=== PATIENT | female | born 2000 | race African-American/Black ===

== ENCOUNTER 2020-08-16 13:05 | Outpatient (REF) | payer MEDICAID, SELFPAY | END 2020-08-16 13:06 | disposition home or self-care (01) | LOC: HO.LAB 13:05 | PROVIDERS: PCP Internal Medicine; Visit Provider Internal Medicine | DX: Z20.828 Contact with and (suspected) exposure to other viral communicable diseases (principal) | CPT/HCPCS: C9803; U0003 ==

== ENCOUNTER 2021-05-15 11:26 | Emergency (ER) | payer MEDICAID, SELFPAY ==
--- NOTE | ~2021-05-15 | XR_ITS ---
EXAMINATION: XR FOOT, LEFT CLINICAL INFORMATION: Foot pain COMPARISON: None TECHNIQUE: AP, lateral, and oblique views of the left foot. There is an arrow marker pointed towards the proximal metatarsals on lateral view. FINDINGS: There is no acute or healing fracture, dislocation, or destructive process. The bony mineralization is normal. There is no joint narrowing or erosive change or chondrocalcinosis. Small spur versus superimposed tiny ossicle resides adjacent to lateral side second metatarsal head on AP view. XR/XR foot LT 2V IMPRESSION: No acute or healing fracture, dislocation, or arthropathy.
[2021-05-15 12:14] VITALS: BP 114/67; PULSE 62; RESP 18; TEMP 36.8; O2SAT 100; BMI 46.0
--- NOTE | 2021-05-15 12:24 | ED_ITS ---
HPI - General Adult General Chief complaint: Extremity Injury, Lower Stated complaint: lt foot pain Time Seen by Provider: 05/15/21 12:24 Source: patient Limitations: no limitations History of Present Illness HPI narrative: Patient presents with atraumatic left foot pain. Patient states pain has been worsening over the front of her foot over the last 2 weeks. Patient denies any past injuries or trauma to the foot. Patient states she has had intermittent foot pain over the last year at times. Patient states she is on her feet at work a lot. Patient states pain increases with weight-bearing and range of motion. Patient denies history of gouty arthritis and diabetes or any other medical complaints at this time. Symptoms mild to moderate pain 02/23. Related Data Previous Rx's Medication Instructions Recorded naproxen 500 mg tablet 500 mg PO BID PRN #30 tab 05/15/21 Allergies Allergy/AdvReac Type Severity Reaction Status Date / Time No Known Allergies Allergy Unverified 05/03/20 16:49 Review of Systems Constitutional: Constitutional: Denies chills, Denies fever(s), Denies frequent falls and Denies headache(s) ENT: Denies headache(s) Cardiovascular: Cardiovascular: Denies chest pain, Denies chest pain at rest and Denies dyspnea Respiratory: Respiratory: Denies cough and Denies dyspnea Gastrointestinal: Gastrointestinal: Denies nausea and Denies vomiting Genitourinary: Comments: Left foot pain Neurologic: Denies frequent falls and Denies headache(s) [facility] Past Medical History Attestation statement: The following information was validated with the patient. Social History Social History Advance Directives: No Patient : No Physical Exam Vital Signs: Vital Signs: Last Vital Signs Temp 98.3 F 05/15/21 12:14 Pulse 62 05/15/21 12:14 Resp 18 05/15/21 12:14 BP 114/67 05/15/21 12:14 Pulse Ox 100 05/15/21 12:14 Body Mass Index 46.0 vital signs have been reviewed as normal and appeared to be correct. Blood pressure normal. Heart rate normal. Respiration rate normal. Temperature normal. Oxygen saturation normal. Appearance: Alert. Oriented X3. No acute distress. Head: Normal external exam. Normocephalic. Atraumatic. Eyes: PERRLA. EOMI. ENT: Pharynx normal. Uvula midline. Moist mucous membranes. Neck: Soft full range of motion, no JVD CVS: Heart regular rate and rhythm no murmurs and rubs Respiratory: Breath sounds are clear to auscultation bilaterally. No accessory muscle use noted. Skin: Skin warm and dry. Normal skin color. Normal skin turgor. No rashes/lesions/lacerations noted. Extremities: Positive tenderness over the dorsum of the left foot no deformity positive pulses pulses station no erythema not hypersensitive to touch Neuro: Oriented X 3. No motor deficit. No sensory deficit. Reflexes normal. Course Course Course Narrative: Left foot pain Left foot arthritis Plantar fasciitis Chronic foot pain. X-rays negative follow-up with Podiatry will be recommended Medical Decision Making Imaging Data foot: Radiologist's impression: [address] [address] XRay Report Signed Patient: Mery Bui MR#: [id number] : 2000 Acct:[id number] Age/Sex: 20 / F ADM Date: 05/15/21 Loc: HO.ED Attending Dr: Ordering Physician: Rui Stone MD Date of Service: 05/15/21 Procedure(s): XR foot LT 2V Accession Number(s): [id number] cc: Rui Stone MD~ EXAMINATION: XR FOOT, LEFT CLINICAL INFORMATION: Foot pain? COMPARISON: None? TECHNIQUE: AP, lateral, and oblique views of the left foot. There is an arrow marker pointed towards the proximal metatarsals on lateral view. FINDINGS: There is no acute or healing fracture, dislocation, or destructive process. The bony mineralization is normal. There is no joint narrowing or erosive change or chondrocalcinosis. Small spur versus superimposed tiny ossicle resides adjacent to lateral side second metatarsal head on AP view. XR/XR foot LT 2V IMPRESSION: No acute or healing fracture, dislocation, or arthropathy. Dictated By: Paul Sweeney MD Signed By: <Electronically signed by Paul Sweeney MD in OV> 05/15/21 1251 DD/ 1231 TD/TT:? 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
== END 2021-05-15 13:17 | disposition home or self-care (01) ==
PROVIDERS: Emergency Provider Emergency Medicine Emergency Medical Services; PCP Internal Medicine
DX: M79.672 Pain in left foot (principal); Z79.899 Other long term (current) drug therapy
CPT/HCPCS: 73620; 99283

== ENCOUNTER → 2022-01-30 14:48 | Outpatient (BNVA) | payer MEDICAID, SELFPAY | PROVIDERS: PCP Internal Medicine; Visit Provider Surgery | DX: L30.9 Dermatitis, unspecified (principal) | CPT/HCPCS: 99202 ==

== ENCOUNTER 2022-03-03 11:08 | Outpatient (REF) | payer MEDICAID, SELFPAY ==
[2022-03-03 13:25] LABS: Syphilis Screen Nonreactive (Nonreactive)
[2022-03-03 15:18] LABS: CT PCR NOT DETECTED (Not Detect.); NG PCR NOT DETECTED (Not Detect.)
[2022-03-04 06:48] LABS: HBsAGNum1 0.61 S/CO (0.00-0.99); HIV AB/AG Nonreactive (Nonreactive); HIV Num 1 0.06 S/CO (0.00-0.99); Hepatitis B Surface Antigen Negative (Negative); ~HepC Num1 0.08 S/CO (0.00-0.79); ~Hepatitis C Antibody Nonreactive (Nonreactive)
[2022-03-04 09:43] LABS: BV Int Neg Control Negative (Negative); BV Int Pos Control Positive (Positive)
== END 2022-03-03 11:09 | disposition home or self-care (01) ==
LOC: HO.LAB 11:08
PROVIDERS: PCP Internal Medicine; Visit Provider Advanced Practice Midwife
DX: R30.0 Dysuria (principal); B96.20 Unspecified Escherichia coli [E. coli] as the cause of diseases classified elsewhere; N89.8 Other specified noninflammatory disorders of vagina; E66.01 Morbid (severe) obesity due to excess calories; Z11.3 Encounter for screening for infections with a predominantly sexual mode of transmission; Z11.8 Encounter for screening for other infectious and parasitic diseases; Z11.59 Encounter for screening for other viral diseases
CPT/HCPCS: 36415; 86780; 86803; 87086; 87088; 87186; 87340; 87389; 87480; 87491; 87510; 87591; 87660; 99202

== ENCOUNTER 2022-12-16 21:55 | Emergency (ER) | payer MEDICAID, SELFPAY ==
[2022-12-16 22:05] VITALS: BP 111/77; PULSE 86; RESP 16; TEMP 37.1; O2SAT 98; BMI 41.0
[2022-12-16 22:31] LABS: Basophils Absolute Auto 0.1 X10*3/uL (0.0-0.2); Basophils Percent Auto 0.3 % (0-2); Eosinophils Absolute Auto 0.1 X10*3/uL (0.0-0.4); Eosinophils Percent Auto 0.5 % (0-4); Hematocrit 42.2 % (37.0-47.0); Hemoglobin 14.6 g/dl (12.0-16.0); Imm Gran Abs Auto 0.07 X10*3/uL (0.00-0.03); Imm Gran Pct Auto 0.4 % (0.0-0.4); Lymphocytes Absolute Auto 0.5 X10*3/uL (1.2-4.9); Lymphocytes Percent Auto 2.6 % (20-40); MANUAL DIFF FLAG SCAN; Mean Corpuscular HGB Conc 34.6 g/dl (31.0-35.0); Mean Corpuscular Volume 86.7 fL (80.0-98.0); Monocytes Percent Auto 5.7 % (2-11); Neutrophils Absolute Auto 16.5 x10*3/uL (2.0-8.3); Neutrophils Percent Auto 90.5 % (45-73); Platelet Count 268 X10*3/uL (160-400); Red Blood Count 4.87 X10*6/uL (4.20-5.50); Red Cell Distribution Width 12.5 % (11.0-16.0); SCAN SMEAR FLAG 1; White Blood Count 18.3 X10*3/uL (4.8-10.8)
[2022-12-16 22:36] LABS: UPreg QC Valid YES; Urine Pregnancy NEGATIVE (NEGATIVE)
[2022-12-16 22:40] LABS: Appearance Urine Clear; Color Urine Yellow; Glucose Urine UA Negative (Negative); Leukocyte Esterase Urine Negative (Negative); Nitrite Urine Negative (Negative); PH >= 9.0 (5.0-9.0); Specific Gravity - Urine 1.015 (1.005-1.025); Urine Blood Negative (Negative); Urine Ketones Negative (Negative); Urine Protein Trace mg/dL (Neg-Trace)
[2022-12-16 22:46] LABS: Anion Gap 14 (12-20); Blood Urea Nitrogen 9 mg/dL (9-16); Calcium 9.2 mg/dL (8.4-10.2); Carbon Dioxide 22 mmol/L (22-29); Chloride 107 mmol/L (96-108); Creatinine Clr Calc Pharmacy 135.5; Estimated Glomerular Filt Rate > 60; Glucose Random 101 mg/dL (60-115); Potassium 3.8 mmol/L (3.3-5.1); Sodium 139 mmol/L (135-145)
[2022-12-16 23:07] LABS: SLIDE REVIEW VERIFIED
[2022-12-17 00:41] VITALS: BP 125/65; PULSE 95; RESP 16; TEMP 36.9; O2SAT 99
--- NOTE | 2022-12-17 01:16 | ED_ITS ---
HPI - Abdominal Pain General Chief Complaint: Abdominal Pain Stated Complaint: Vomiting/Diarrhea/Dizzy Time Seen by Provider: 12/17/22 01:16 Source: patient Mode of arrival: ambulatory Limitations: no limitations History of Present Illness HPI narrative: Patient otherwise healthy comes in for diarrhea , nausea and vomiting for last 24 hours vomited about 10 times and had diarrhea about 5 times unable to hold much liquids down no urinary complaints no fever or chills no recent travel or antibiotic use no other family member sick Related Data Previous Rx's Medication Instructions Recorded metronidazole 0.75 % (37.5 mg/5 1 appful vaginal BEDTIME 5 days 03/05/22 gram) vaginal gel #70 grams sulfamethoxazole 800 1 tab PO Q12H #6 tabs 03/05/22 mg-trimethoprim 160 mg tablet ondansetron 4 mg disintegrating 4 mg PO Q6-8H PRN nausea and 12/17/22 tablet vomiting #10 tabs Allergies Allergy/AdvReac Type Severity Reaction Status Date / Time No Known Allergies Allergy Verified 03/03/22 10:24 Review of Systems Review of Systems Yes all other systems are reviewed and are negative [facility] Family History Family History Mother Cervical cancer Social History Social History Smoked in Last 30 Days: No Use of substances other than those prescribed or required for medical reasons: No Advance Directives: No Advance Directives Information Provided: Yes Patient : No Physical Exam ED Vital Signs: Vital Signs - 24 hr 12/16/22 22:05 12/17/22 00:41 12/17/22 02:46 Temperature 98.8 F 98.5 F 98.9 F Pulse Rate 86 95 78 Respiratory Rate 16 16 16 Blood Pressure 111/77 125/65 93/37 L Pulse Oximetry 98 99 99 Oxygen Delivery Method Room Air Room Air Room Air 12/17/22 05:55 12/17/22 05:56 Temperature Pulse Rate 105 H 100 Respiratory Rate 16 16 Blood Pressure 122/70 122/70 Pulse Oximetry 97 Oxygen Delivery Method Room Air BMI result Body Mass Index 41.0 Appearance: Alert. Oriented X3. No acute distress. Eyes: No pallor or icterus ENT: Pharynx normal. Oral Mucosa moist Neck: Normal inspection. Neck supple. CVS: Normal heart rate and rhythm. Pulses normal. Respiratory: No respiratory distress. Equal air entry bilateral, no wheezing/rales/rhonchi Abdomen: Soft and nontender. Bowel sounds are present, no mass palpable, no CVA tenderness Skin: Skin warm and dry. Normal skin color. Normal skin turgor. Extremities: No lower extremity edema. No calf tenderness Neuro: Oriented X 3. No motor deficit. Medical Decision Making Medical Decision Making [facility] Narrative: Patient has acute gastroenteritis no focal tenderness in the abdomen feeling much better after IV fluids and Zofran and dicyclomine Lab Data [facility] Lab Attestation statement: I reviewed the patient's lab results. 12/16/22 22:20 12/16/22 22:20 Labs: Lab Results 12/16/22 12/16/22 12/16/22 Range/Units 22:20 22:20 22:20 WBC 18.3 H (4.8-10.8) X10*3/uL RBC 4.87 (4.20-5.50) X10*6/uL Hgb 14.6 (12.0-16.0) g/dl Hct 42.2 (37.0-47.0) % MCV 86.7 (80.0-98.0) fL MCH 30.0 (27.0-33.0) pg MCHC 34.6 (31.0-35.0) g/dl RDW 12.5 (11.0-16.0) % Plt Count 268 (160-400) X10*3/uL MPV 11.0 (9.4-12.3) fL Immature Gran % (Auto) 0.4 (0.0-0.4) % Neut % (Auto) 90.5 H (45-73) % Lymph % (Auto) 2.6 L (20-40) % [place] % (Auto) 5.7 (2-11) % Eos % (Auto) 0.5 (0-4) % Baso % (Auto) 0.3 (0-2) % Lymph # (Auto) 0.5 L (1.2-4.9) X10*3/uL [place] # (Auto) 1.0 (0.1-1.2) X10*3/uL Eos # (Auto) 0.1 (0.0-0.4) X10*3/uL Baso # (Auto) 0.1 (0.0-0.2) X10*3/uL Abs Immat Gran (auto) 0.07 H (0.00-0.03) X10*3/uL Absolute Neuts (auto) 16.5 H (2.0-8.3) x10*3/uL Absolute Nucleated RBC 0.000 (0.0-0.012) X10*3/uL Nucleated RBC % (auto) 0.0 (0.0-0.2) /100WBC Smear Tech's Comments VERIFIED Sodium 139 (135-145) mmol/L Potassium 3.8 (3.3-5.1) mmol/L Chloride 107 (96-108) mmol/L Carbon Dioxide 22 (22-29) mmol/L Anion Gap 14 (12-20) BUN 9 (9-16) mg/dL Creatinine 0.89 (0.5-1.4) mg/dL Estim Creat Clear Calc 135.5 Estimated GFR > 60 Random Glucose 101 (60-115) mg/dL Calcium 9.2 (8.4-10.2) mg/dL Urine Color Yellow Urine Appearance Clear Urine pH >= 9.0 (5.0-9.0) Ur Specific [place] 1.015 (1.005-1.025) Urine Protein Trace (Neg-Trace) mg/dL Urine Glucose (UA) Negative (Negative) mg/dL Urine Ketones Negative (Negative) mg/dL Urine Blood Negative (Negative) Urine Nitrite Negative (Negative) Ur Leukocyte Esterase Negative (Negative) Urine Test (NEGATIVE) 12/16/22 Range/Units 22:20 WBC (4.8-10.8) X10*3/uL RBC (4.20-5.50) X10*6/uL Hgb (12.0-16.0) g/dl Hct (37.0-47.0) % MCV (80.0-98.0) fL MCH (27.0-33.0) pg MCHC (31.0-35.0) g/dl RDW (11.0-16.0) % Plt Count (160-400) X10*3/uL MPV (9.4-12.3) fL Immature Gran % (Auto) (0.0-0.4) % Neut % (Auto) (45-73) % Lymph % (Auto) (20-40) % [place] % (Auto) (2-11) % Eos % (Auto) (0-4) % Baso % (Auto) (0-2) % Lymph # (Auto) (1.2-4.9) X10*3/uL [place] # (Auto) (0.1-1.2) X10*3/uL Eos # (Auto) (0.0-0.4) X10*3/uL Baso # (Auto) (0.0-0.2) X10*3/uL Abs Immat Gran (auto) (0.00-0.03) X10*3/uL Absolute Neuts (auto) (2.0-8.3) x10*3/uL Absolute Nucleated RBC (0.0-0.012) X10*3/uL Nucleated RBC % (auto) (0.0-0.2) /100WBC Smear Tech's Comments Sodium (135-145) mmol/L Potassium (3.3-5.1) mmol/L Chloride (96-108) mmol/L Carbon Dioxide (22-29) mmol/L Anion Gap (12-20) BUN (9-16) mg/dL Creatinine (0.5-1.4) mg/dL Estim Creat Clear Calc Estimated GFR Random Glucose (60-115) mg/dL Calcium (8.4-10.2) mg/dL Urine Color Urine Appearance Urine pH (5.0-9.0) Ur Specific [place] (1.005-1.025) Urine Protein (Neg-Trace) mg/dL Urine Glucose (UA) (Negative) mg/dL Urine Ketones (Negative) mg/dL Urine Blood (Negative) Urine Nitrite (Negative) Ur Leukocyte Esterase (Negative) Urine Test NEGATIVE (NEGATIVE) Medications Administered Discontinued Medications Generic Name Dose Route Start Last Admin Trade Name Freq PRN Reason Stop Dose Admin Dicyclomine HCl 20 mg 12/17/22 01:22 12/17/22 02:03 Dicyclomine Hcl 10 Mg Capsule PO 12/17/22 01:23 20 mg ONCE ONE Administration Sodium Chloride 1,000 mls @ 999 mls/hr 12/17/22 01:22 12/17/22 05:56 Ns IV 05/03/23 02:22 Infused .Q1H1M ONE Infusion Ondansetron HCl 4 mg 12/17/22 01:22 12/17/22 02:03 Ondansetron Hcl 4 Mg/2 Ml Vial IVPUSH 12/17/22 01:23 4 mg ONCE ONE Administration Discharge Plan Discharge Clinical Impression: Gastroenteritis Patient Disposition: Home, Self-Care Instructions: Gastroenteritis (ED) Additional Instructions: Drink plenty of fluid Medicine for nausea as prescribed Follow-up with PCP if not better Prescriptions: New ondansetron 4 mg tablet,disintegrating 4 mg PO Q6-8H PRN (Reason: nausea and vomiting) Qty: 10 0RF No Action sulfamethoxazole-trimethoprim 800-160 mg tablet 1 tab PO Q12H Qty: 6 0RF Rx Instructions: take q 12 hours ( twice a day ) for 3 days metronidazole 0.75 % gel 1 appful vaginal BEDTIME 5 Days Qty: 70 0RF Stand Alone Forms: Work/School Release Interventions: ED Discharge Assessment Last Done: 12/17/22 06:02 Discharge Date/Time: 12/17/22 06:03
[2022-12-17] MEDS: ondansetron HCL 4 MG/2 ML VIAL IVPUSH (02:03)
[2022-12-17] MEDS: Dicyclomine HCl 10 MG CAPSULE 20 MG PO (02:03)
[2022-12-17] MEDS: 0.9 % Sodium Chloride 1,000 ML 999 ML IV (02:03)
--- NOTE | 2022-12-17 02:06 | PC.NURSE ---
IV established, IVF infusing per MAR. Pt medicated per MAR. Continue to monitor.
[2022-12-17 02:46] VITALS: BP 93/37; PULSE 78; RESP 16; TEMP 37.2; O2SAT 99
[2022-12-17 05:55] VITALS: BP 122/70; PULSE 105; RESP 16; O2SAT 97
[2022-12-17 05:56] VITALS: BP 122/70; PULSE 100; RESP 16
== END 2022-12-17 06:03 | disposition home or self-care (01) ==
PROVIDERS: Emergency Provider Internal Medicine; PCP Internal Medicine
DX: K52.9 Noninfective gastroenteritis and colitis, unspecified (principal); Z79.899 Other long term (current) drug therapy
CPT/HCPCS: 36415; 80048; 81003; 81025; 85025; 96361; 96374; 99285; J2405

== ENCOUNTER 2023-04-12 11:53 | Emergency (ER) | payer MEDICAID, SELFPAY ==
--- NOTE | 2023-04-12 12:02 | ED_ITS ---
HPI - Headache General Chief Complaint: Headache Stated Complaint: pressure headache Time Seen by Provider: 04/12/23 13:03 Related Data Previous Rx's Medication Instructions Recorded metronidazole 0.75 % (37.5 mg/5 1 appful vaginal BEDTIME 5 days 03/05/22 gram) vaginal gel #70 grams sulfamethoxazole 800 1 tab PO Q12H #6 tabs 03/05/22 mg-trimethoprim 160 mg tablet ondansetron 4 mg disintegrating 4 mg PO Q6-8H PRN nausea and 12/17/22 tablet vomiting #10 tabs [id number] 1 cap PO Q8H PRN pain #10 caps 04/12/23 50 mg-300 mg-40 mg capsule (Fioricet) Allergies Allergy/AdvReac Type Severity Reaction Status Date / Time No Known Allergies Allergy Verified 04/12/23 12:07 PMFSH Family History Family History Mother Cervical cancer Social History Social History Advance Directives: No Advance Directives Information Provided: No Physical Exam Vital Signs: Vital Signs: Last Vital Signs Temp 96.2 F L 04/12/23 16:17 Pulse 55 04/12/23 16:50 Resp 16 04/12/23 16:50 BP 109/62 04/12/23 16:50 Pulse Ox 99 04/12/23 16:50 O2 Del Method Room Air 04/12/23 16:50 BMI result Body Mass Index 44.0 Course Course Course Narrative: This is an RME: Additional HPI, ROS, PE not included below will be deferred to primary provider. Patient is a 22 year old female who presents to the emergency department for evaluation of a headache time 5 days primarily frontal but moves and has felt to right parietal and occipital region as well. Alleviates some with ibuprofen but then returns. Denies vision changes, dizziness, neck pain, nausea, vomiting, photophobia, phonophobia. Plan: Urinalysis, hCG, placed in W are pending bed availability Medications Administered Discontinued Medications Generic Name Dose Route Start Last Admin Trade Name Freq PRN Reason Stop Dose Admin Diphenhydramine HCl 25 mg 04/12/23 14:25 04/12/23 14:37 Diphenhydramine Hcl 50 Mg/Ml Vial IVPUSH 04/12/23 14:26 25 mg ONCE ONE Administration Sodium Chloride 1,000 mls @ 999 mls/hr 04/12/23 14:30 04/12/23 16:14 Ns IV 04/12/23 15:30 Infused .Q1H1M TAYE Infusion Ketorolac Tromethamine 15 mg 04/12/23 14:25 04/12/23 14:36 Ketorolac Tromethamine 15 Mg/Ml Vial IVPUSH 04/12/23 14:26 15 mg ONCE ONE Administration Metoclopramide HCl 10 mg 04/12/23 14:25 04/12/23 14:38 Metoclopramide Hcl 10 Mg/2 Ml Vial IVPUSH 04/12/23 14:26 10 mg ONCE ONE Administration Medical Decision Making Lab Data Labs: Lab Results 04/12/23 04/12/23 Range/Units 13:15 13:15 Urine Color Yellow Urine Appearance Clear Urine pH 6.0 (5.0-9.0) Ur Specific [place] 1.015 (1.005-1.025) Urine Protein Negative (Neg-Trace) mg/dL Urine Glucose (UA) Negative (Negative) mg/dL Urine Ketones Negative (Negative) mg/dL Urine Blood Negative (Negative) Urine Nitrite Negative (Negative) Ur Leukocyte Esterase Negative (Negative) Urine Test NEGATIVE (NEGATIVE) Discharge Plan Discharge Clinical Impression: Headache Patient Disposition: Home, Self-Care Instructions: Acute Headache (DC) Additional Instructions: You have been evaluated in the emergency department today for headache. Your evaluation did not show evidence of medical conditions requiring emergent intervention at this time, and your pain improved with medication in the ED. We recommend you take 600 mg ibuprofen every 6 hours or Tylenol 650 mg every 6 hour s as needed for pain. If needed, you can alternate these medications so that you take 1 medication every 3 hours. For instance, at noon take ibuprofen, then at 3:00 p.m. take Tylenol, then at 6:00 p.m. take ibuprofen. Please follow-up with your primary care provider within 2 days. You are being prescribed Fioricet to use for when Tylenol and ibuprofen are ineffective. Please follow- up with your primary care provider this week. Return to the emergency department if you experience worsening or uncontrolled pain, vision changes, recurrent vomiting, difficulty with normal activities, abnormal behavior, difficulty walking, numbness, weakness, or any other concerning symptoms. Prescriptions: New [id number] [Fioricet] 50-300-40 mg capsule 1 cap PO Q8H PRN (Reason: pain) Qty: 10 0RF No Action sulfamethoxazole-trimethoprim 800-160 mg tablet 1 tab PO Q12H Qty: 6 0RF Rx Instructions: take q 12 hours ( twice a day ) for 3 days metronidazole 0.75 % gel 1 appful vaginal BEDTIME 5 Days Qty: 70 0RF ondansetron 4 mg tablet,disintegrating 4 mg PO Q6-8H PRN (Reason: nausea and vomiting) Qty: 10 0RF Interventions: ED Discharge Assessment Last Done: 04/12/23 17:40 Discharge Date/Time: 04/12/23 17:40
[2023-04-12 12:03] VITALS: BP 144/63; PULSE 69; RESP 20; TEMP 36.7; O2SAT 98; BMI 44.0
[2023-04-12 13:26] LABS: Appearance Urine Clear; Color Urine Yellow; Glucose Urine UA Negative (Negative); Leukocyte Esterase Urine Negative (Negative); Nitrite Urine Negative (Negative); Specific Gravity - Urine 1.015 (1.005-1.025); Urine Blood Negative (Negative); Urine Ketones Negative (Negative); Urine Protein Negative (Neg-Trace)
[2023-04-12 13:28] LABS: UPreg QC Valid YES; Urine Pregnancy NEGATIVE (NEGATIVE)
--- NOTE | 2023-04-12 14:26 | ED_ITS ---
HPI - Headache General Chief Complaint: Headache Stated Complaint: pressure headache Time Seen by Provider: 04/12/23 13:03 Source: patient Mode of arrival: ambulatory Limitations: no limitations History of Present Illness HPI Narrative: Patient is a 22-year-old female presenting to the emergency department with complaint of frontal and occipital headache which has been intermittent since Thursday but she has been unable to resolve. Also complains posterior neck tension and feels the pain radiates to bilateral ears at times. Reports using ibuprofen for her symptoms with only temporary relief. Denies any blurred vision, double vision or other visual changes. Denies nausea or vomiting. Denies dizziness or lightheadedness. Denies headache worst at onset, denies worst headache of life. Denies any episodes of syncope. States is consistent with prior headaches. Denies fevers. Denies any recent falls or other trauma. MD elicited complaint: headache Onset (ago): day(s) Onset description: gradually Location: frontal and occipital Severity: moderate Quality & Timing: aching Exacerbating factors: none Relieving factors: NSAIDs Context: occurred at rest Associated symptoms: none Treatments prior to arrival: ibuprofen Related Data Previous Rx's Medication Instructions Recorded metronidazole 0.75 % (37.5 mg/5 1 appful vaginal BEDTIME 5 days 03/05/22 gram) vaginal gel #70 grams sulfamethoxazole 800 1 tab PO Q12H #6 tabs 03/05/22 mg-trimethoprim 160 mg tablet ondansetron 4 mg disintegrating 4 mg PO Q6-8H PRN nausea and 12/17/22 tablet vomiting #10 tabs buluojbqow-qgrdlgdcpvbvu-rncwtxoj 1 cap PO Q8H PRN pain #10 caps 04/12/23 50 mg-300 mg-40 mg capsule (Fioricet) Allergies Allergy/AdvReac Type Severity Reaction Status Date / Time No Known Allergies Allergy Verified 04/12/23 12:07 Review of Systems Review of Systems: As per HPI. Yes all other systems are reviewed and are negative Constitutional: Constitutional: Reports as per HPI [facility] Family History Family History Mother Cervical cancer Social History Social History Advance Directives: No Advance Directives Information Provided: No Physical Exam Vital Signs: Vital Signs: Last Vital Signs Temp 96.2 F L 04/12/23 16:17 Pulse 55 04/12/23 16:50 Resp 16 04/12/23 16:50 BP 109/62 04/12/23 16:50 Pulse Ox 99 04/12/23 16:50 O2 Del Method Room Air 04/12/23 16:50 BMI result Body Mass Index 44.0 Vital signs have been reviewed and appear to be correct. Blood pressure mildly elevated. Heart rate normal. Respiratory rate normal. Temperature normal. Oxygen saturation normal. Const: General: cooperative, healthy appearing and no acute distress Orientation/consciousness: oriented to person, oriented to place, oriented to time and patient oriented x3 Limitations: no limitations HEENT: Head: Yes normal to inspection, Yes normocephalic and Yes atraumatic Ears: external ears normal and TM's normal bilaterally General nose exam: Normal external nose present Face and sinus: Yes face symmetric Mouth: oropharynx normal and moist mucous membranes Throat: Yes uvula midline Eyes: Pupils: Equal, round and reactive pupils present Neck: Neck: Yes normal visual inspection, Yes full ROM, Yes no meningeal signs and Yes supple Resp: Effort & Inspection: normal respiratory effort and able to speak in complete sentences Auscultation: clear to auscultation bilaterally Cardio: Rate: regular rate Rhythm: regular rhythm Heart sounds: S1 norm al heart sound present and S2 normal heart sound present GI: Palpation (GI): Soft to palpation and nontender Auscultation: normoactive bowel sounds : General: Yes no CVA tenderness Back/Spine/Pelvis: Back: no CVA tenderness Skin: General skin exam: elasticity normal and turgor normal Neuro: General: oriented to person, oriented to place, oriented to time, patient oriented x3, gait normal, moves all extremities, Normal light touch and pain sensation, no meningeal signs, no focal motor deficits, CN's II-XI intact bilaterally, normal sensation to monofilament and deep tendon reflexes 2+ bilaterally Cranial nerves: Yes Equal, round and reactive pupils present Cognition (Neuro): normal cognition Gait exam (Neuro): Normal gait present Motor exam (neuro): 5/5 motor strength present throughout, Pronator motor function not present, Normal motor muscle tone present throughout and Motor abnormalities not present Sensory Exam: Normal double simultaneous stimulatio n for sensation Extrem: General: Yes full ROM, Yes no pedal edema and Yes no calf tenderness Psych: Mental Status: mental status grossly normal Affect: normal affect Thought process: Normal thought process present Medications Administered Discontinued Medications Generic Name Dose Route Start Last Admin Trade Name Rhonda PRN Reason Stop Dose Admin Diphenhydramine HCl 25 mg 04/12/23 14:25 04/12/23 14:37 Diphenhydramine Hcl 50 Mg/Ml Vial IVPUSH 04/12/23 14:26 25 mg ONCE ONE Administration Sodium Chloride 1,000 mls @ 999 mls/hr 04/12/23 14:30 04/12/23 16:14 Ns IV 04/12/23 15:30 Infused .Q1H1M TAYE Infusion Ketorolac Tromethamine 15 mg 04/12/23 14:25 04/12/23 14:36 Ketorolac Tromethamine 15 Mg/Ml Vial IVPUSH 04/12/23 14:26 15 mg ONCE ONE Administration Metoclopramide HCl 10 mg 04/12/23 14:25 04/12/23 14:38 Metoclopramide Hcl 10 Mg/2 Ml Vial IVPUSH 04/12/23 14:26 10 mg ONCE ONE Administration Medical Decision Making Medical Decision Making MDM Narrative: Patient is a 22-year-old female presenting to the emergency department with complaint of frontal and occipital headache which has been intermittent since Thursday but she has been unable to resolve. On exam patient is awake, A+Ox3, VS WNL, afebrile, normal neurological exam without focal deficits, DTRs 2+ throughout. Given reported symptoms and physical exam findings, initial differential includes migraine, tension headache. No red flag findings con cerning for as AH/ICH, temporal arteritis, giant cell arteritis, pseudotumor cerebri, meningitis, encephalitis. Do not suspect preeclampsia as test negative. No evidence of infection on UA. Do not feel imaging is indicated at this time. Plan: medicate with IV fluids, Benadryl, Reglan, Toradol and reassess 17:33 Patient reports resolution of headache after medications and fluids in the ED. States she feels comfortable with discharge home. Instructed patient to follow-up with primary care provider. Return precautions discussed at bedside. Will prescribe Fioricet for home for when Tylenol and ibuprofen not effective. Patient and mother verbalized understanding of and agreement with plan. Differential Diagnosis Differential Diagnoses: The differential diagnosis associated with the presentation includes As per [facility]. Lab Data [facility] Lab Attestation statement: I reviewed the patient's lab results. As per [facility]. Labs: Lab Results 04/12/23 04/12/23 Range/Units 13:15 13:15 Urine Color Yellow Urine Appearance Clear Urine pH 6.0 (5.0-9.0) Ur Specific [place] 1.015 (1.005-1.025) Urine Protein Negative (Neg-Trace) mg/dL Urine Glucose (UA) Negative (Negative) mg/dL Urine Ketones Negative (Negative) mg/dL Urine Blood Negative (Negative) Urine Nitrite Negative (Negative) Ur Leukocyte Esterase Negative (Negative) Urine Test NEGATIVE (NEGATIVE) Independent Historian Clinical information obtained from an independent historian. History obtained from or confirmed by: Parent (mother) External Record Review External record reviewed: Inpatient record, Office record and Outpatient record Prescription Management I considered prescription management with: Pain Medication Discharge Plan Discharge Clinical Impression: Headache Patient Disposition: Home, Self-Care Instructions: Acute Headache (DC) Additional Instructions: You have been evaluated in the emergency department today for headache. Your evaluation did not show evidence of medical conditions requiring emergent intervention at this time, and your pain improved with medication in the ED. We recommend you take 600 mg ibuprofen every 6 hours or Tylenol 650 mg every 6 hours as needed for pain. If needed, you can alternate these medications so that you take 1 medication every 3 hours. For instance, at noon take ibuprofen, then at 3:00 p.m. take Tylenol, then at 6:00 p.m. take ibuprofen. Please follow-up with your primary care provider within 2 days. You are being prescribed Fioricet to use for when Tylenol and ibuprofen are ineffective. Please follow-up with your primary care provider this week. Return to the emergency department if you experience worsening or uncontrolled pain, vision changes, recurrent vomiting, difficulty with normal activities, abnormal behavior, difficulty walking, numbness, weakness, or any other concerning symptoms. Prescriptions: New jharqevkds-zeptcirsetwpb-lcfb [Fioricet] 50-300-40 mg capsule 1 cap PO Q8H PRN (Reason: pain) Qty: 10 0RF No Action sulfamethoxazole-trimethoprim 800-160 mg tablet 1 tab PO Q12H Qty: 6 0RF Rx Instructions: take q 12 hours ( twice a day ) for 3 days metronidazole 0.75 % gel 1 appful vaginal BEDTIME 5 Days Qty: 70 0RF ondansetron 4 mg tablet,disintegrating 4 mg PO Q6-8H PRN (Reason: nausea and vomiting) Qty: 10 0RF
[2023-04-12] MEDS: 0.9 % Sodium Chloride 1,000 ML 999 ML IV (14:34)
[2023-04-12] MEDS: Ketorolac Tromethamine 15 MG/ML VIAL IVPUSH (14:36)
[2023-04-12] MEDS: diphenhydrAMINE HCL 50 MG/ML VIAL 25 MG IVPUSH (14:37)
[2023-04-12] MEDS: Metoclopramide HCl 10 MG/2 ML VIAL IVPUSH (14:38)
[2023-04-12 16:17] VITALS: BP 90/45; PULSE 63; RESP 16; TEMP 35.7; O2SAT 96
[2023-04-12 16:50] VITALS: BP 109/62; PULSE 55; RESP 16; O2SAT 99
== END 2023-04-12 17:40 | disposition home or self-care (01) ==
PROVIDERS: Nurse Practitioner Family; Emergency Provider Emergency Medicine; PCP Internal Medicine
DX: R51.9 Headache, unspecified (principal)
CPT/HCPCS: 81003; 81025; 96361; 96374; 96375; 99284; J1200; J1885; J2765

== ENCOUNTER 2023-04-13 19:20 | Emergency (ER) | payer MEDICAID, SELFPAY ==
--- NOTE | ~2023-04-13 | CT_ITS ---
EXAMINATION: CT HEAD WITHOUT CONTRAST CLINICAL INFORMATION: Pain COMPARISON: None available. TECHNIQUE: Contiguous axial imaging was performed from the skull base to vertex without intravenous administration of contrast. This CT examination was performed using dose optimization techniques as appropriate, variously including the following: *Automated exposure control *Adjustment of mA and/or kV according to patient size (this includes techniques or standardized protocols for targeted exams where dose is matched to indication/reason for exam; i.e. extremities or head) *Use of iterative reconstruction technique DLP: 704 mGy-cm FINDINGS: There is no evidence of acute intracranial hemorrhage or territorial infarction. No abnormal mass effect or midline shift is seen. Hancock to white matter differentiation is well preserved. No extra-axial fluid collections are identified. The ventricles are normal in size. There is no abnormal attenuation within the brain parenchyma. The osseous structures and soft tissues are normal. The mastoid air cells and visualized portions of the paranasal sinuses are well aerated. CT/CT head/brain wo IV con IMPRESSION: No acute intracranial pathology.
[2023-04-13 19:31] VITALS: BP 120/83; PULSE 60; RESP 18; TEMP 36.7; O2SAT 97; BMI 44.8
--- NOTE | 2023-04-13 19:31 | ED.GENADULT ---
HPI - General Adult General Chief complaint: Headache Stated complaint: migraine Time Seen by Provider: 04/13/23 19:52 Source: patient, RN notes reviewed and old records reviewed Mode of arrival: ambulatory Limitations: no limitations History of Present Illness HPI narrative: 32-year-old female presents for evaluation of a headache Related Data Previous Rx's Medication Instructions Recorded metronidazole 0.75 % (37.5 mg/5 1 appful vaginal BEDTIME 5 days 03/05/22 gram) vaginal gel #70 grams sulfamethoxazole 800 1 tab PO Q12H #6 tabs 03/05/22 mg-trimethoprim 160 mg tablet ondansetron 4 mg disintegrating 4 mg PO Q6-8H PRN nausea and 12/17/22 tablet vomiting #10 tabs oxyhoftntx-jmitwfqpagdio-xdbfvfac 1 cap PO Q8H PRN pain #10 caps 04/12/23 50 mg-300 mg-40 mg capsule (Fioricet) gtxatcopwx-wyeucmbquffdo-rtpiipgk 1 cap PO Q8H PRN headache #14 caps 04/13/23 50 mg-300 mg-40 mg capsule (Fioricet) Allergies Allergy/AdvReac Type Severity Reaction Status Date / Time No Known Allergies Allergy Verified 04/13/23 19:35 [facility] Family History Family History Mother Cervical cancer Social History Social History Advance Directives: No Advance Directives Information Provided: No Physical Exam ED Vital Signs: Vital Signs - 24 hr 04/13/23 19:31 04/13/23 19:56 04/13/23 22:00 Temperature 98.1 F 99.0 F 98.4 F Pulse Rate 60 56 66 Respiratory Rate 18 16 16 Blood Pressure 120/83 125/67 119/64 Pulse Oximetry 97 98 98 Oxygen Delivery Method Room Air Room Air Room Air BMI result Body Mass Index 44.8 Eyes Direct Ophthalmoscopy: normal light reflex, no papilledema and fundi normal bilaterally Course Course Course Narrative: This is an RME: Additional HPI, ROS, PE not included below will be deferred to primary provider. 22 year old female presenting for a migraine that has been ongoing for two weeks. She was seen for this migraine yesterday and told to take ibuprofen which has not resolved the headache. Today she has developed dizziness and now has pain behind her left eye. Denies nausea and vomiting. Plan: [facility] Reevaluation(s) Reevaluation #1: Patient reports that her headache has greatly improved. She still complains a mild headache, CT scan reassuring, she is stable for discharge Time: 22:56 Medications Administered Discontinued Medications Generic Name Dose Route Start Last Admin Trade Name Seunq PRN Reason Stop Dose Admin Diphenhydramine HCl 25 mg 04/13/23 20:27 04/13/23 21:08 Diphenhydramine Hcl 50 Mg/Ml Vial IVPUSH 04/13/23 20:28 25 mg ONCE ONE Administration Sodium Chloride 1,000 mls @ 999 mls/hr 04/13/23 20:30 04/13/23 21:07 Ns IV 04/13/23 21:30 999 mls/hr .Q1H1M TAYE Administration Ketorolac Tromethamine 15 mg 04/13/23 20:27 04/13/23 21:07 Ketorolac Tromethamine 15 Mg/Ml Vial IVPUSH 04/13/23 20:28 15 mg ONCE ONE Administration Metoclopramide HCl 10 mg 04/13/23 20:27 04/13/23 21:07 Metoclopramide Hcl 10 Mg/2 Ml Vial IVPUSH 04/13/23 20:28 10 mg ONCE ONE Administration Medical Decision Making Lab Data 04/13/23 20:42 04/13/23 20:42 Labs: Lab Results 04/13/23 04/13/23 04/13/23 Range/Units 20:42 20:42 20:42 WBC 9.8 (4.8-10.8) X10*3/uL RBC 4.39 (4.20-5.50) X10*6/uL Hgb 12.8 (12.0-16.0) g/dl Hct 37.6 (37.0-47.0) % MCV 85.6 (80.0-98.0) fL MCH 29.2 (27.0-33.0) pg MCHC 34.0 (31.0-35.0) g/dl RDW 12.6 (11.0-16.0) % Plt Count 178 D (160-400) X10*3/uL MPV 11.1 (9.4-12.3) fL Immature Gran % (Auto) 0.5 H (0.0-0.4) % Neut % (Auto) 59.0 (45-73) % Lymph % (Auto) 27.5 (20-40) % [place] % (Auto) 9.6 (2-11) % Eos % (Auto) 2.9 (0-4) % Baso % (Auto) 0.5 (0-2) % Lymph # (Auto) 2.7 (1.2-4.9) X10*3/uL [place] # (Auto) 0.9 (0.1-1.2) X10*3/uL Eos # (Auto) 0.3 (0.0-0.4) X10*3/uL Baso # (Auto) 0.1 (0.0-0.2) X10*3/uL Abs Immat Gran (auto) 0.05 H (0.00-0.03) X10*3/uL Absolute Neuts (auto) 5.8 (2.0-8.3) x10*3/uL Absolute Nucleated RBC 0.000 (0.0-0.012) X10*3/uL Nucleated RBC % (auto) 0.0 (0.0-0.2) /100WBC Smear Tech's Comments VERIFIED ESR 6 (0-20) MM/HR Sodium 138 (135-145) mmol/L Potassium 4.5 (3.3-5.1) mmol/L Chloride 104 (96-108) mmol/L Carbon Dioxide 28 (22-29) mmol/L Anion Gap 11 L (12-20) BUN 10 (9-16) mg/dL Creatinine 0.86 (0.5-1.4) mg/dL Estim Creat Clear Calc 147.5 Estimated GFR > 60 Random Glucose 85 (60-115) mg/dL Calcium 9.2 (8.4-10.2) mg/dL Total Bilirubin 0.2 (0.0-1.0) mg/dL AST 26 (5-31) U/L ALT 16 (0-31) U/L Alkaline Phosphatase 57 (39-117) U/L C-Reactive Protein 0.15 (< or = 0.50) mg/dL Total Protein 7.7 (6.5-8.0) g/dL Albumin 3.9 (3.5-5.0) g/dL Beta HCG, Quant < 2 mIU/mL Discharge Plan Discharge Clinical Impression: Acute headache Patient Disposition: Home, Self-Care Instructions: Acute Headache (ED) Additional Instructions: Your CT scan did not show any concerning findings. Funduscopic exam did not show any obvious concerning abnormalities You should still follow-up with your primary doctor and delivery associate In the meantime you may use Fioricet as needed for pain Prescriptions: New nxbjboxllj-wspltpzssskeo-exre [Fioricet] 50-300-40 mg capsule 1 cap PO Q8H PRN (Reason: headache) Qty: 14 0RF No Action sulfamethoxazole-trimethoprim 800-160 mg tablet 1 tab PO Q12H Qty: 6 0RF Rx Instructions: take q 12 hours ( twice a day ) for 3 days metronidazole 0.75 % gel 1 appful vaginal BEDTIME 5 Days Qty: 70 0RF pybejnzkfk-ldrjwrkaekczp-pvyo [Fioricet] 50-300-40 mg capsule 1 cap PO Q8H PRN (Reason: pain) Qty: 10 0RF ondansetron 4 mg tablet,disintegrating 4 mg PO Q6-8H PRN (Reason: nausea and vomiting) Qty: 10 0RF
[2023-04-13 19:56] VITALS: BP 125/67; PULSE 56; RESP 16; TEMP 37.2; O2SAT 98
--- NOTE | 2023-04-13 20:00 | MHC.EDTECH ---
this pct just assumed care of pt ,vitals sign taken ,pt waiting to see provider .
--- NOTE | 2023-04-13 20:31 | ED.GENADULT ---
HPI - General Adult General Chief complaint: Headache Stated complaint: migraine Time Seen by Provider: 04/13/23 19:52 Source: patient, family (mother) and RN notes reviewed Mode of arrival: ambulatory Limitations: no limitations History of Present Illness HPI narrative: 22-year-old female presents for evaluation of headache. The patient reports that she has had a headache mostly behind her left eye but spreading up over the back of her head for 1 week. She was seen here yesterday and was treated with IV fluids, Reglan, Benadryl, Toradol and was ultimately discharged home. Patient reports that her symptoms never resolved and are now worse today Denies any blurry vision but states that she has pain mostly behind her left eye Denies any trauma to the head or neck. She reports that she used to get headaches many years ago but does not routinely get headaches She called her primary doctor and was told that they would call her back tomorrow She an episode of dizziness earlier today prompting her to be brought back to the ER by her mother Related Data Previous Rx's Medication Instructions Recorded metronidazole 0.75 % (37.5 mg/5 1 appful vaginal BEDTIME 5 days 03/05/22 gram) vaginal gel #70 grams sulfamethoxazole 800 1 tab PO Q12H #6 tabs 03/05/22 mg-trimethoprim 160 mg tablet ondansetron 4 mg disintegrating 4 mg PO Q6-8H PRN nausea and 12/17/22 tablet vomiting #10 tabs lbtunqalkb-mdwuoglyleskj-kdfphqef 1 cap PO Q8H PRN pain #10 caps 04/12/23 50 mg-300 mg-40 mg capsule (Fioricet) bsaejiqvvc-tppszqzzammjd-nbdikptg 1 cap PO Q8H PRN headache #14 caps 04/13/23 50 mg-300 mg-40 mg capsule (Fioricet) Allergies Allergy/AdvReac Type Severity Reaction Status Date / Time No Known Allergies Allergy Verified 04/13/23 19:35 Review of Systems Constitutional: Constitutional: Reports as per HPI, Denies chills, Denies fatigue, Denies fever(s) and Reports headache(s) Eyes: Eyes: Denies blurry vision, Denies exophthalmos, Denies change in vision and Reports eye pain ENT: Reports headache(s) Cardiovascular: Cardiovascular: Denies chest pain and Denies dyspnea Respiratory: Respiratory: Denies cough and Denies dyspnea Gastrointestinal: Gastrointestinal: Denies abdominal pain, Denies constipation and Denies vomiting Genitourinary: Genitourinary: Denies dysuria Neurologic: Reports headache(s) and Denies focal weakness Endocrine: Endocrine: Denies fatigue [facility] Family History Family History Mother Cervical cancer Social History Social History Advance Directives: No Advance Directives Information Provided: No Physical Exam ED Vital Signs: Vital Signs - 24 hr 04/13/23 19:31 04/13/23 19:56 04/13/23 22:00 Temperature 98.1 F 99.0 F 98.4 F Pulse Rate 60 56 66 Respiratory Rate 18 16 16 Blood Pressure 120/83 125/67 119/64 Pulse Oximetry 97 98 98 Oxygen Delivery Method Room Air Room Air Room Air BMI result Body Mass Index 44.8 Const General: healthy appearing, comfortable, no acute distress, alert and awake Nutritional Appearance: well nourished Orientation/consciousness: patient oriented x3 HENMT Head: Yes normocephalic and Yes atraumatic Eyes Eyelids: Yes eyelids normal Conjunctivae: conjunctivae normal Sclerae: sclerae normal Corneas: corneas normal Pupils: Equal, round and reactive pupils present EOM: EOMs intact bilaterally Direct Ophthalmoscopy: normal light reflex, no photophobia and no papilledema Neck Neck: Yes full ROM Resp Effort & Inspection: normal respiratory effort, able to speak in complete sentences and not labored Skin General skin exam: no rashes or lesions noted and elasticity normal Neuro General: patient oriented x3 Cranial nerves: Yes CN's II-XII intact bilaterally, Yes Equal, round and reactive pupils present and Yes Bilaterally intact EOM present Cognition (Neuro): normal cognition Extrem Other: Moving all extremities well without any obvious deformities Course Reevaluation(s) Reevaluation #1: Patient reports feeling much better she reports her headache has greatly improved but still complains a mild headache. CT scan discussed with her which is unremarkable Time: 23:04 Medications Administered Discontinued Medications Generic Name Dose Route Start Last Admin Trade Name Freq PRN Reason Stop Dose Admin Diphenhydramine HCl 25 mg 04/13/23 20:27 04/13/23 21:08 Diphenhydramine Hcl 50 Mg/Ml Vial IVPUSH 04/13/23 20:28 25 mg ONCE ONE Administration Sodium Chloride 1,000 mls @ 999 mls/hr 04/13/23 20:30 04/13/23 21:07 Ns IV 04/13/23 21:30 999 mls/hr .Q1H1M TAYE Administration Ketorolac Tromethamine 15 mg 04/13/23 20:27 04/13/23 21:07 Ketorolac Tromethamine 15 Mg/Ml Vial IVPUSH 04/13/23 20:28 15 mg ONCE ONE Administration Metoclopramide HCl 10 mg 04/13/23 20:27 04/13/23 21:07 Metoclopramide Hcl 10 Mg/2 Ml Vial IVPUSH 04/13/23 20:28 10 mg ONCE ONE Administration Medical Decision Making Medical Decision Making [facility] Narrative: 22-year-old female presents for evaluation of headache and left eye pain. She was seen here yesterday had a reassuring exam and was ultimately discharged. She reports that today she had an episode of dizziness which is new compared to yesterday prompting her to be re-evaluated. She did not have any imaging at this time. Will get a CT scan the brain to rule out intracranial hemorrhage versus mass. Plan to treat with while RegJuan valenzuelaadryl. Patient has no fever and has good range of motion in neck, less likely to be infectious process. Funduscopic exam without any obvious abnormalities to suggest papilledema Differential Diagnosis Differential Diagnoses: The differential diagnosis associated with the presentation includes Migraine headache Tension headache Cluster headache Intracranial hemorrhage Intracranial mass Papilledema Glaucoma less likely Lab Data [facility] Lab Attestation statement: I reviewed the patient's lab results. No leukocytosis, no anemia, no left shift. No significant electrolyte abnormalities 04/13/23 20:42 04/13/23 20:42 Labs: Lab Results 04/13/23 04/13/23 04/13/23 Range/Units 20:42 20:42 20:42 WBC 9.8 (4.8-10.8) X10*3/uL RBC 4.39 (4.20-5.50) X10*6/uL Hgb 12.8 (12.0-16.0) g/dl Hct 37.6 (37.0-47.0) % MCV 85.6 (80.0-98.0) fL MCH 29.2 (27.0-33.0) pg MCHC 34.0 (31.0-35.0) g/dl RDW 12.6 (11.0-16.0) % Plt Count 178 D (160-400) X10*3/uL MPV 11.1 (9.4-12.3) fL Immature Gran % (Auto) 0.5 H (0.0-0.4) % Neut % (Auto) 59.0 (45-73) % Lymph % (Auto) 27.5 (20-40) % [place] % (Auto) 9.6 (2-11) % Eos % (Auto) 2.9 (0-4) % Baso % (Auto) 0.5 (0-2) % Lymph # (Auto) 2.7 (1.2-4.9) X10*3/uL [place] # (Auto) 0.9 (0.1-1.2) X10*3/uL Eos # (Auto) 0.3 (0.0-0.4) X10*3/uL Baso # (Auto) 0.1 (0.0-0.2) X10*3/uL Abs Immat Gran (auto) 0.05 H (0.00-0.03) X10*3/uL Absolute Neuts (auto) 5.8 (2.0-8.3) x10*3/uL Absolute Nucleated RBC 0.000 (0.0-0.012) X10*3/uL Nucleated RBC % (auto) 0.0 (0.0-0.2) /100WBC Smear Tech's Comments VERIFIED ESR 6 (0-20) MM/HR Sodium 138 (135-145) mmol/L Potassium 4.5 (3.3-5.1) mmol/L Chloride 104 (96-108) mmol/L Carbon Dioxide 28 (22-29) mmol/L Anion Gap 11 L (12-20) BUN 10 (9-16) mg/dL Creatinine 0.86 (0.5-1.4) mg/dL Estim Creat Clear Calc 147.5 Estimated GFR > 60 Random Glucose 85 (60-115) mg/dL Calcium 9.2 (8.4-10.2) mg/dL Total Bilirubin 0.2 (0.0-1.0) mg/dL AST 26 (5-31) U/L ALT 16 (0-31) U/L Alkaline Phosphatase 57 (39-117) U/L C-Reactive Protein 0.15 (< or = 0.50) mg/dL Total Protein 7.7 (6.5-8.0) g/dL Albumin 3.9 (3.5-5.0) g/dL Beta HCG, Quant < 2 mIU/mL Independent Interpretation I performed an independent interpretation of an: CT Scan (No obvious abnormalities) Radiology Impression Discussion of test interpretation with radiology: I have reviewed the radiologist's reading. (No acute intracranial abnormality) Discharge Plan Discharge Clinical Impression: Acute headache Patient Disposition: Home, Self-Care Instructions: Acute Headache (ED) Additional Instructions: Your CT scan did not show any concerning findings. Funduscopic exam did not show any obvious concerning abnormalities You should still follow-up with your primary doctor and senior vice president & general counsel In the meantime you may use Fioricet as needed for pain Prescriptions: New sugvdrvxgx-myjnhfdwrbhet-rajt [Fioricet] 50-300-40 mg capsule 1 cap PO Q8H PRN (Reason: headache) Qty: 14 0RF No Action sulfamethoxazole-trimethoprim 800-160 mg tablet 1 tab PO Q12H Qty: 6 0RF Rx Instructions: take q 12 hours ( twice a day ) for 3 days metronidazole 0.75 % gel 1 appful vaginal BEDTIME 5 Days Qty: 70 0RF bysnosqiiy-grktlirsflkhy-fplx [Fioricet] 50-300-40 mg capsule 1 cap PO Q8H PRN (Reason: pain) Qty: 10 0RF ondansetron 4 mg tablet,disintegrating 4 mg PO Q6-8H PRN (Reason: nausea and vomiting) Qty: 10 0RF
--- NOTE | 2023-04-13 20:50 | MHC.EDTECH ---
PATIENT BLOOD DRAWN AND SENT TO LAB .
[2023-04-13 20:54] LABS: Basophils Absolute Auto 0.1 X10*3/uL (0.0-0.2); Basophils Percent Auto 0.5 % (0-2); Eosinophils Absolute Auto 0.3 X10*3/uL (0.0-0.4); Eosinophils Percent Auto 2.9 % (0-4); Hematocrit 37.6 % (37.0-47.0); Hemoglobin 12.8 g/dl (12.0-16.0); Imm Gran Abs Auto 0.05 X10*3/uL (0.00-0.03); Imm Gran Pct Auto 0.5 % (0.0-0.4); Lymphocytes Absolute Auto 2.7 X10*3/uL (1.2-4.9); Lymphocytes Percent Auto 27.5 % (20-40); MANUAL DIFF FLAG SCAN; Mean Corpuscular Hemoglobin 29.2 pg (27.0-33.0); Mean Corpuscular Volume 85.6 fL (80.0-98.0); Mean Platelet Volume 11.1 fL (9.4-12.3); Monocytes Absolute Auto 0.9 X10*3/uL (0.1-1.2); Monocytes Percent Auto 9.6 % (2-11); Neutrophils Absolute Auto 5.8 x10*3/uL (2.0-8.3); PLT CLUMP 1; Red Blood Count 4.39 X10*6/uL (4.20-5.50); Red Cell Distribution Width 12.6 % (11.0-16.0); SCAN SMEAR FLAG 1
[2023-04-13 21:03] LABS: Alanine Aminotransferase 16 U/L (0-31); Albumin Level 3.9 g/dL (3.5-5.0); Alkaline Phosphatase 57 U/L (39-117); Anion Gap 11 (12-20); Aspartate Amino Transferase 26 U/L (5-31); Bilirubin Total 0.2 mg/dL (0.0-1.0); Blood Urea Nitrogen 10 mg/dL (9-16); C Reactive Protein 0.15 mg/dL (< or = 0.50); Calcium 9.2 mg/dL (8.4-10.2); Carbon Dioxide 28 mmol/L (22-29); Chloride 104 mmol/L (96-108); Creatinine Clr Calc Pharmacy 147.5; Estimated Glomerular Filt Rate > 60; Glucose Random 85 mg/dL (60-115); Potassium 4.5 mmol/L (3.3-5.1); Sodium 138 mmol/L (135-145); Total Protein 7.7 g/dL (6.5-8.0)
[2023-04-13] MEDS: 0.9 % Sodium Chloride 1,000 ML 999 ML IV (21:07)
[2023-04-13] MEDS: Ketorolac Tromethamine 15 MG/ML VIAL IVPUSH (21:07)
[2023-04-13] MEDS: Metoclopramide HCl 10 MG/2 ML VIAL IVPUSH (21:07)
[2023-04-13] MEDS: diphenhydrAMINE HCL 50 MG/ML VIAL 25 MG IVPUSH (21:08)
[2023-04-13 21:34] LABS: Erythrocyte Sedimentation Rate 6 MM/HR (0-20)
[2023-04-13 21:49] LABS: Platelet Count 178 X10*3/uL (160-400); White Blood Count 9.8 X10*3/uL (4.8-10.8)
[2023-04-13 21:50] LABS: HCG Quantitative < 2 mIU/mL; SLIDE REVIEW VERIFIED
[2023-04-13 22:00] VITALS: BP 119/64; PULSE 66; RESP 16; TEMP 36.9; O2SAT 98
== END 2023-04-13 23:11 | disposition home or self-care (01) ==
PROVIDERS: Physician Assistant; Emergency Provider Emergency Medicine; PCP Internal Medicine
DX: R51.9 Headache, unspecified (principal); R42 Dizziness and giddiness; Z79.899 Other long term (current) drug therapy
CPT/HCPCS: 36415; 70450; 80053; 84702; 85025; 85652; 86140; 96374; 96375; 99284; J1200; J1885; J2765

== ENCOUNTER 2023-05-13 09:45 | Outpatient (AMB) | payer MEDICAID, SELFPAY ==
[2023-05-13 09:46] VITALS: BP 124/88; BMI 45.5
--- NOTE | 2023-05-13 09:46 | MHC.OFFVIS ---
Intake Vital Signs 05/13/23 09:46 Height 5 ft 8 in Weight 299 lb BMI 45.5 BP 124/88 Intake Visit Reasons: ? 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 Prone to BV in past. Denies pelvic pain, urinary symptoms and vaginal odor. Reports regular monthly menses. Reports a doctor's office contacted her about vaginitis and to take Rx. [facility] Medical History (Updated 05/13/23 @ 11:07 by Lynette Godoy) BMI 45.0-49.9, adult Family History Mother Cervical cancer Female Reproductive History Menstrual Age of Menarche: 8 Date of last menstrual period: 05/10/23 Physical Exam Vital Signs: Last Vital Signs BP 124/88 05/13/23 09:46 BMI result Body Mass Index 45.5 Const General: cooperative, healthy appearing, comfortable, no acute distress, well developed, alert and awake GI Inspection: Yes obesity Other: General: Yes bladder normal to palpation External Female Exam: normal external appearance and normal appearance of the urethra Speculum Exam - Vagina: normal appearance of the vagina, normal palpation and normal vaginal discharge Speculum Exam - Cervix: normal appearance of the cervix and normal palpation Bimanual exam- vagina & uterus: normal bimanual exam, normal palpation, bladder normal to palpation and normal palpation Bimanual Exam- Adnexa, other: normal adnexae and no masses Assessment & Plan Assessment & Plan (1) Vaginal discharge: Code(s): N89.8 - Other specified noninflammatory disorders of vagina Plan: Discussed: BV testing and GC/CT panel done today. Await results and treat accordingly. Encouraged to use condoms for STD prevention if become sexually active. All of her questions and concerns were addressed to the best of my ability and shared decision making. She is agreeable to plan of care. RTO for AG. (2) BMI 45.0-49.9, adult: Code(s): Z68.42 - Body mass index [BMI] 45.0-49.9, adult Orders: Orders Bacterial Vaginosis Panel Today N89.8 - Other specified noninflammatory disorders of vagina CT NG by PCR Today N89.8 - Other specified noninflammatory disorders of vagina Coding Level of Care Code Est Pt Level 3 (49358) Diagnoses Vaginal discharge N89.8 BMI 45.0-49.9, adult Z68.42
== END 2023-05-13 10:26 | disposition home or self-care (01) ==
PROVIDERS: PCP Internal Medicine; Visit Provider Advanced Practice Midwife
DX: N89.8 Other specified noninflammatory disorders of vagina (principal); Z68.42 Body mass index [BMI] 45.0-49.9, adult
CPT/HCPCS: 99213

== ENCOUNTER 2023-05-13 09:45 | Outpatient (REF) | payer MEDICAID, SELFPAY | END 2023-05-13 09:46 | disposition home or self-care (01) | LOC: HO.LAB 09:45 | PROVIDERS: PCP Internal Medicine; Visit Provider Advanced Practice Midwife | DX: N89.8 Other specified noninflammatory disorders of vagina (principal) | CPT/HCPCS: 99212 ==

== ENCOUNTER 2023-05-13 10:23 | Outpatient (REF) | payer MEDICAID, SELFPAY ==
[2023-05-14 05:41] LABS: CT PCR NOT DETECTED (Not Detect.); NG PCR NOT DETECTED (Not Detect.)
[2023-05-14 13:01] LABS: BV Int Neg Control Negative (Negative); BV Int Pos Control Positive (Positive)
== END 2023-05-13 10:24 | disposition home or self-care (01) ==
LOC: HO.LNP 10:23
PROVIDERS: Visit Provider Advanced Practice Midwife
DX: N89.8 Other specified noninflammatory disorders of vagina (principal)
CPT/HCPCS: 0353U; 87480; 87510; 87660

== ENCOUNTER 2023-06-12 11:32 | Outpatient (REF) | payer MEDICAID, SELFPAY ==
--- NOTE | ~2023-06-12 | XR_ITS ---
EXAMINATION: XR CHEST CLINICAL INFORMATION: Cough for one month COMPARISON: None available. TECHNIQUE: 2 views of the chest were obtained. FINDINGS: Prominent cardiac silhouette. Unremarkable mediastinum. No vascular congestion, consolidations or effusions. Bony structures are intact. XR/XR chest 2V IMPRESSION: Prominent cardiac silhouette. No acute pulmonary disease.
== END 2023-06-12 11:33 | disposition home or self-care (01) ==
LOC: HO.HHCX 11:32
PROVIDERS: Visit Provider Internal Medicine
DX: R05.2 Subacute cough (principal)
CPT/HCPCS: 71046

== ENCOUNTER 2023-06-21 11:40 | Emergency (ER) | payer MEDICAID, SELFPAY ==
--- NOTE | ~2023-06-21 | XR_ITS ---
EXAMINATION: CHEST 2 VIEWS CLINICAL INFORMATION: Productive cough. COMPARISON: 06/12/2023. TECHNIQUE: PA and lateral views of the chest obtained. FINDINGS: The lungs are hypoexpanded. No focal infiltrate, effusion, edema, or pneumothorax. Cardiac and mediastinal silhouettes are within normal limits for technique. No acute bony abnormality seen XR/XR chest 2V IMPRESSION: Hypoexpanded but no evidence of acute disease
[2023-06-21 11:42] VITALS: BP 135/79; PULSE 89; RESP 18; TEMP 36.6; O2SAT 97; BMI 44.1
--- NOTE | 2023-06-21 11:42 | ED.URI ---
HPI - URI/Sore Throat General Chief Complaint: Upper Respiratory Symptoms Stated Complaint: congestion/ chest tightness Time Seen by Provider: 06/21/23 12:15 Source: patient, RN notes reviewed and old records reviewed Mode of arrival: ambulatory Limitations: no limitations History of Present Illness HPI Narrative: 22-year-old female with past medical history of morbid obesity, hypertension is here today for complaining of cough. Patient reports that about a month ago she started with cold symptoms, sinus pain and couple weeks later she and up with cough. Patient continues to be coughing. Yellow greenish sputum. Denies any fever or chills. Denies any malaise. Denies any shortness of breath. No nausea or vomiting. Denies any cardiac or GI symptoms. MD elicited complaint: cough Onset (ago): week(s) Related Data Previous Rx's Medication Instructions Recorded ondansetron 4 mg disintegrating 4 mg PO Q6-8H PRN nausea and 12/17/22 tablet vomiting #10 tabs czsapwtclk-mxtagdenqvkxk-euvgivfc 1 cap PO Q8H PRN pain #10 caps 04/12/23 50 mg-300 mg-40 mg capsule (Fioricet) benzonatate 100 mg capsule 100 mg PO BID PRN cough #20 caps 06/21/23 Allergies Allergy/AdvReac Type Severity Reaction Status Date / Time No Known Allergies Allergy Verified 06/21/23 11:42 Review of Systems Review of Systems: Constitutional : No Weight loss, No Fever, No Chills, No Night Sweats, No Fatigue, No Malaise ENT/Mouth : No Hearing loss, No Ear Pain, No Nasal Congestion, No Sinus Pain, No Hoarseness, No sore throat, No Rhinorrhea, No Swallowing Difficulty Eyes: No Eye Pain, No Swelling, No Redness, No Foreign Body, No Discharge, No Vision Changes Cardiovascular : No Chest Pain, No SOB, No Dyspnea on Exertion, No Orthopnea, No Edema, No Palpitations Respiratory : Cough, yellow sputum, No Wheezing, No Smoke Exposure, No Dyspnea Gastrointestinal : No Nausea, No Vomiting, No Diarrhea, No Constipation, No abdominal Pain, No Hematochezia, No Melena Musculoskeletal : No joint pain, No Myalgias, No Joint Swelling Skin : No Skin Lesions, No rash Yes all other systems are reviewed and are negative [facility] Past Medical History Medical History (Updated 06/21/23 @ 13:05 by Jolynn Lincoln, [facility]) BMI 45.0-49.9, adult Family History Family History Mother Cervical cancer Social History Social History Advance Directives: No Advance Directives Information Provided: No Physical Exam Vital Signs: Vital Signs: Last Vital Signs Temp 97.9 F 06/21/23 11:42 Pulse 89 06/21/23 11:42 Resp 18 06/21/23 11:42 BP 135/79 06/21/23 11:42 Pulse Ox 97 06/21/23 11:42 O2 Del Method Room Air 06/21/23 11:42 BMI result Body Mass Index 44.1 Const: General: healthy appearing, no acute distress and well developed Nutritional Appearance: well nourished Orientation/consciousness: patient oriented x3 HEENT: Head: Yes normal to inspection, Yes normocephalic and Yes atraumatic Face and sinus: Yes normal facial exam Mouth: Normal oral and palatal mucosa present Throat: Yes posterior oropharynx normal, Yes tonsils normal and Yes uvula midline Eyes: General: appearance normal, both eyes and all related structures Neck: Neck: Yes normal visual inspection, Yes full ROM and Yes trachea midline Thyroid: Thyroid normal Chest: Chest palpation & inspection: normal inspection of the chest Resp: Effort & Inspection: normal respiratory effort, able to speak in complete sentences, no tracheal deviation and symmetric chest movement Auscultation: clear to auscultation bilaterally Cardio: Heart sounds: S1 normal heart sound present and S2 normal heart sound present GI: Inspection: Yes normal to inspection Auscultation: normal bowel sounds Skin: General skin exam: elasticity normal, turgor normal and dry skin Neuro: General: patient oriented x3 Psych: Appearance: grossly normal Mental Status: mental status grossly normal Course Course Course Narrative: RME: 22yo F w/no sig PMHx c/o productive cough & chest tightness w/cough x1 mos. Went to PCP last week and had CXR that was unremarkable. denies SOB, fever VSS Viral testing and CXR ordered Full HPI, ROS and PE to be performed by primary ED provider. 22-year-old female with past medical history of morbid obesity, hypertension is here today for complaining of cough. Patient reports that about a month ago she started with cold symptoms, sinus pain and couple weeks later she started up with cough. Patient continues to be coughing. Yellow greenish sputum. Denies any fever or chills. Denies any malaise. Denies any shortness of breath. No nausea or vomiting. Denies any cardiac or GI symptoms. Chest x-ray ordered an triage and negative. Awaiting serology on COVID and flu. Reevaluation(s) Reevaluation #1: serology negative for COVID and flu. Will send patient home with benzonatate. Patient will follow-up with her PCP. Medical Decision Making Lab Data Labs: Lab Results 06/21/23 Range/Units 12:15 COVID-19 (ILYA) Negative (Negative) COVID-19 Clin Com See Note Influenza Type A (JOEY) Negative (Negative) Influenza Type B (JOEY) Negative (Negative) Influenza A & B Note See Note Discharge Plan Discharge Clinical Impression: Cough, Viral infection Patient Disposition: Home, Self-Care Instructions: Cold Symptoms (ED) Additional Instructions: you were seen here today for cough. Your chest x-ray is normal. You do not have flu or COVID. Please make sure day you drink plenty fluids. If you will have fever or chills take Tylenol or ibuprofen. You will be given script for cough medicine. You may return to emergency department if your symptoms will get worse or if you experience any additional concerning symptoms. Prescriptions: New benzonatate 100 mg capsule 100 mg PO BID PRN (Reason: cough) Qty: 20 0RF No Action noukicfrcs-thwhhcugtvbiz-gulx [Fioricet] 50-300-40 mg capsule 1 cap PO Q8H PRN (Reason: pain) Qty: 10 0RF ondansetron 4 mg tablet,disintegrating 4 mg PO Q6-8H PRN (Reason: nausea and vomiting) Qty: 10 0RF Referrals: Madison Ray MD [Primary Care Provider] - Stand Alone Forms: Work/School Release Interventions: ED Discharge Assessment Last Done: 06/21/23 13:08 Discharge Date/Time: 06/21/23 13:08
[2023-06-21 12:37] LABS: IDNOW Serial# 9DB6401D; Influenza A Negative (Negative); Influenza B2 Negative (Negative)
[2023-06-21 12:38] LABS: COVID-19 Test Negative (Negative); IDNOW Serial# 55D5AD1C
== END 2023-06-21 13:08 | disposition home or self-care (01) ==
PROVIDERS: Physician Assistant; Emergency Provider Emergency Medicine; PCP Internal Medicine
DX: B34.9 Viral infection, unspecified (principal); R05.9 Cough, unspecified; I10 Essential (primary) hypertension; R07.89 Other chest pain; Z11.52 Encounter for screening for COVID-19
CPT/HCPCS: 71046; 87502; 87635; 99282; 99284

== ENCOUNTER 2023-06-27 13:42 | Emergency (ER) | payer MEDICAID, SELFPAY ==
--- NOTE | 2023-06-27 13:45 | ED.URI ---
HPI - URI/Sore Throat General Chief Complaint: Upper Respiratory Symptoms Stated Complaint: cough Time Seen by Provider: 06/27/23 14:05 Source: patient Mode of arrival: ambulatory Limitations: no limitations History of Present Illness HPI Narrative: patient is a 22-year-old female who presents to the emergency department for evaluation of a productive cough for the past 5 weeks. She states she has been having an intermittent sore throat associated with this. She was evaluated by her primary care doctor as well as in the emergency department 1 week ago. She has had 2 chest x-rays which have been overall unremarkable. She denies fevers, chills, ear pain, dizziness, neck pain, neck stiffness, chest pain, shortness of breath, difficulty breathing, nausea vomiting, abdominal pain. Denies known sick contacts. Related Data Previous Rx's Medication Instructions Recorded ondansetron 4 mg disintegrating 4 mg PO Q6-8H PRN nausea and 12/17/22 tablet vomiting #10 tabs dilftnipmj-laxfdngonmhri-kqbenpee 1 cap PO Q8H PRN pain #10 caps 04/12/23 50 mg-300 mg-40 mg capsule (Fioricet) benzonatate 100 mg capsule 100 mg PO BID PRN cough #20 caps 06/21/23 azithromycin 250 mg tablet See Rx Instructions PO .COMPLEX #6 06/27/23 tabs Allergies Allergy/AdvReac Type Severity Reaction Status Date / Time No Known Allergies Allergy Verified 06/21/23 11:42 Review of Systems Review of Systems: Yes all other systems are reviewed and are negative PMFSH Past Medical History Attestation statement: The following information was validated with the patient. Source: old records reviewed Medical History BMI 45.0-49.9, adult Family History Family History Mother Cervical cancer Social History Social History Advance Directives: No Advance Directives Information Provided: No Physical Exam Vital Signs: Vital Signs: Last Vital Signs Temp 97.8 F 06/27/23 13:46 Pulse 70 06/27/23 13:46 Resp 18 06/27/23 13:46 BP 127/83 06/27/23 13:46 Pulse Ox 97 06/27/23 13:46 O2 Del Method Room Air 06/27/23 13:46 BMI result Body Mass Index 43.8 Appearance: Alert.?Oriented to person, place and time. No acute distress.?Normal affect. Eyes: Pupils equal, round and reactive to light.? ENT: TM normal bilaterally. Pharynx normal.?? Neck: Normal inspection.? Neck supple.??No cervical adenopathy CVS: Heart sounds normal. Normal heart rate and rhythm.? Pulses normal.?? Respiratory: No respiratory distress.? Lung sounds clear to auscultation bilaterally?? Abdomen: Soft and non-tender. Normoactive bowel sounds. Skin: Skin warm and dry.? Normal skin color.? ? Extremities: No lower extremity edema.? Neuro: Moves all extremities spontaneously. Sensation intact bilaterally. No motor deficits. Ambulates with normal steady gait. Course Course Course Narrative: This is a rapid medical exam. Deferred additional HPI, ROS, PE to primary provider. 22 yo female here with history of obesity, HTN here with productive cough/sore throat x 2 weeks. Seen here for 06/21 and diagnosed with viral infection. Has follow-up with via phone call w/ her PCP next week. Will obtain viral testing, strep testing VSS Medical Decision Making Medical Decision Making MDM Narrative: Patient is a 22-year-old female presenting for evaluation of persistent productive cough with discomfort. COVID-19 testing negative. Influenza testing negative. strep a testing negative At this time history and physical exam not consistent with ACS/PE/pneumonia /Peritonsillar/retropharyngeal abscess. she has had 2 recent chest x-rays, most recently 1 week ago which were without evidence of consolidation or infiltrate, at this time not see indication to repeat chest x-ray. Well-appearing, nontoxic, afebrile, no tachycardia or tachypnea/hypoxia. will trial course of treatment with azithromycin, although I did discuss with patient that cough associated with bronchitis can last up to 6 weeks, she has an appointment to follow-up with her primary care provider this coming week. Speaking clear full sentences, ambulatory with steady gait. Discussed conservative treatment including rest, hydration, Tylenol/ibuprofen as needed for fever and body aches, saline nasal spray, humidifier, nbde-ovs-zuqhibv cold medication. Differential Diagnosis Differential Diagnoses: The differential diagnosis associated with the presentation includes ( as noted above) Lab Data MDM Lab Attestation statement: I reviewed the patient's lab results. ( as noted above) Labs: Lab Results 06/27/23 Range/Units 13:52 Influenza Type A (PCR) NEGATIVE (Negative) Influenza Type B (PCR) NEGATIVE (Negative) RSV RNA Qual (PCR) NEGATIVE (Negative) SARS-CoV-2 RNA (RT-PCR) NEGATIVE (Negative) S. pyogenes GrpA JOEY Negative (Negative) Independent Historian Clinical information obtained from an independent historian. History obtained from or confirmed by: Parent ( present at bedside who confirms history) External Record Review External record reviewed: Outpatient record and Prior outpatient radiology Prescription Management I considered prescription management with: Antibiotic Discharge Plan Discharge Clinical Impression: Bronchitis Patient Disposition: Home, Self-Care Instructions: Acute Bronchitis (ED) Prescriptions: New azithromycin 250 mg tablet See Rx Instructions .ROUTE .COMPLEX Qty: 6 0RF Rx Instructions: For 250 mg dose pack: take 500 mg today (day 1), then 250 mg for 4 days (days 2-5) No Action wsvgkvllcv-qeerltaohmsxf-wwzq [Fioricet] 50-300-40 mg capsule 1 cap PO Q8H PRN (Reason: pain) Qty: 10 0RF ondansetron 4 mg tablet,disintegrating 4 mg PO Q6-8H PRN (Reason: nausea and vomiting) Qty: 10 0RF benzonatate 100 mg capsule 100 mg PO BID PRN (Reason: cough) Qty: 20 0RF Referrals: Madison Ray MD [Primary Care Provider] -
[2023-06-27 13:46] VITALS: BP 127/83; PULSE 70; RESP 18; TEMP 36.6; O2SAT 97; BMI 43.8
[2023-06-27 14:06] LABS: IDNOW Serial# 08D9AD1C; Strep A Nucleic Acid Negative (Negative)
[2023-06-27 14:54] LABS: Influenza A PCR NEGATIVE (Negative); Influenza B PCR NEGATIVE (Negative); Resp Syncy Virus RNA Qual PCR NEGATIVE (Negative); SARS COV2 PCR INHOUSE NEGATIVE (Negative)
== END 2023-06-27 16:16 | disposition home or self-care (01) ==
PROVIDERS: Nurse Practitioner Family; Emergency Provider Emergency Medicine Emergency Medical Services; PCP Internal Medicine
DX: J40 Bronchitis, not specified as acute or chronic (principal); Z20.822 Contact with and (suspected) exposure to COVID-19; Z20.828 Contact with and (suspected) exposure to other viral communicable diseases
CPT/HCPCS: 0241U; 87651; 99283

== ENCOUNTER 2023-09-23 11:06 | Outpatient (AMB) | payer MEDICAID, SELFPAY ==
[2023-09-23 11:09] VITALS: BP 120/84; BMI 42.8
--- NOTE | 2023-09-23 11:09 | A.OFFVIS_ITS ---
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 Doing well with no concerns: She reports symptoms of BV including increased discharge and odor. She tries to eat healthy and stays active with exercise, walking frequently. Regular monthly menses. Currently is not sexually active. She denies vaginal itching and irritation. STI screening offered; she accepts. Denies family history of breast, ovarian or colon cancer. Last pap smear unknown, negative. 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, [employer] Sexual orientation: Straight/Heterosexual Gender identity: Female Female Reproductive History Menstrual Age of Menarche: 8 Date of last menstrual period: 09/16/23 control method: none Total pregnancies: 0 Review of Systems Const All systems reviewed & are unremarkable except as noted in HPI and below Reports as per HPI Eyes Reports no additional complaints ENT Reports no additional complaints Card Reports no additional complaints Resp Reports no additional complaints GI Reports as per HPI and Reports no additional complaints Reports as per HPI Musc Reports no additional complaints Skin/Breast Reports as per HPI Neuro Reports no additional complaints Psych Reports no additional complaints Endo Reports no additional complaints Alonso/Lymph Reports no additional complaints Aller/Immun Reports no additional complaints Physical Exam Vital Signs: Last Vital Signs BP 120/84 09/23/23 11:09 BMI result Body Mass Index 42.8 Const General: cooperative, healthy appearing, no acute distress, well developed and alert Orientation/consciousness: patient oriented x3 HEENT Head: Yes normal to inspection Eyes General: appearance normal, both eyes and all related structures Neck Neck: Yes normal visual inspection Thyroid: Thyroid normal Chest Chest palpation & inspection: normal inspection of the chest and other (no puckering, dimpling, peau de orange, retraction, discharge, masses) Breast/axilla inspection: normal inspection of the breasts Breast/axilla palpation: normal palpation of the breasts Resp Effort & Inspection: normal respiratory effort GI Inspection: Yes normal to inspection Palpation (GI): Soft to palpation Rectal Exam - Female: deferred General: Yes bladder normal to palpation External Female Exam: normal external appearance and normal appearance of the urethra Speculum Exam - Vagina: normal appearance of the vagina, normal palpation and normal vaginal discharge Speculum Exam - Cervix: normal appearance of the cervix, normal palpation and Other cervical findings present (Bled with Pap) Bimanual exam- vagina & uterus: normal bimanual exam, normal palpation, uterine size normal, bladder normal to palpation, normal palpation and non-tender Bimanual Exam- Adnexa, other: no masses Skin General skin exam: no rashes or lesions noted Rashes: no rashes Neuro General: patient oriented x3 Cognition (Neuro): normal cognition Extrem General: Yes normal to inspection Psych Attitude: cooperative Thought process: Normal thought process present Assessment & Plan Assessment & Plan (1) Encounter for well woman exam with routine gynecological exam: Code(s): Z01.419 - Encounter for gynecological examination (general) (routine) without abnormal findings (2) Possible exposure to STD: Code(s): Z20.2 - Contact with and (suspected) exposure to infections with a predominantly sexual mode of transmission Plan Discussed: Current recommendations for pap smears per ASCCP guidelines. Breast awareness and periodic breast exams. Maintain a healthy lifestyle including a well balanced diet and routine exercise. Encouraged a Mediterranean diet. Use condoms for STI and prevention. Boric acid information work sheet provided for consideration and future use. Return to the office if needs control at any time. Or if there is any menstrual abnormalities. Patient verbalizes understanding and agrees to the plan of care. She was given opportunity to ask questions and all questions were answered to the best of my ability. RTO in one year for annual aboriginal education teacher examination. This note is constructed using voice recognition software. While every effort has been made to ensure accuracy, director of claims errors may have been included. Orders: Orders HIV Ab/Ag Today Z20.2 - Contact with and (suspected) exposure to infections with a predominantly sexual mode of transmission CT NG by PCR Today N89.8 - Other specified noninflammatory disorders of vagina, Z20.2 - Contact with and (suspected) exposure to infections with a predominantly sexual mode of transmission Pap Smear Today Z01.419 - Encounter for gynecological examination (general) (routine) without abnormal findings Hepatitis C Antibody Reflex Today Z20.2 - Contact with and (suspected) exposure to infections with a predominantly sexual mode of transmission Hepatitis B Surface Antigen Today Z20.2 - Contact with and (suspected) exposure to infections with a predominantly sexual mode of transmission Syphilis Screen Today Z20.2 - Contact with and (suspected) exposure to infections with a predominantly sexual mode of transmission Bacterial Vaginosis Panel Today N89.8 - Other specified noninflammatory disorders of vagina Coding Level of Care Code Est Pt Prev Care 18-39y([id number]) Diagnoses Encounter for well woman exam with routine gynecological exam Z01.419 Possible exposure to STD Z20.2
== END 2023-09-23 12:57 | disposition home or self-care (01) ==
PROVIDERS: PCP Internal Medicine; Visit Provider Advanced Practice Midwife
DX: Z01.419 Encounter for gynecological examination (general) (routine) without abnormal findings (principal); Z20.2 Contact with and (suspected) exposure to infections with a predominantly sexual mode of transmission
CPT/HCPCS: 99395

== ENCOUNTER 2023-09-23 11:06 | Outpatient (REF) | payer MEDICAID, SELFPAY | END 2023-09-23 11:07 | disposition home or self-care (01) | LOC: HO.LNP 11:06 | PROVIDERS: PCP Internal Medicine; Visit Provider Advanced Practice Midwife | DX: Z01.419 Encounter for gynecological examination (general) (routine) without abnormal findings (principal); Z11.51 Encounter for screening for human papillomavirus (HPV); Z20.2 Contact with and (suspected) exposure to infections with a predominantly sexual mode of transmission | CPT/HCPCS: 0353U; 86780; 86803; 87340; 87389; 87480; 87510; 87660; 88142; 99395 ==

== ENCOUNTER 2023-09-23 11:39 | Outpatient (REF) | payer MEDICAID, SELFPAY ==
[2023-09-23 18:08] LABS: CT PCR NOT DETECTED (Not Detect.); NG PCR NOT DETECTED (Not Detect.)
[2023-09-24 08:02] LABS: HIV AB/AG Nonreactive (Nonreactive); HIV Num 1 0.06 S/CO (0.00-0.99); Hepatitis B Surface Antigen Negative (Negative); ~HepC Num1 0.08 S/CO (0.00-0.79); ~Hepatitis C Antibody Nonreactive (Nonreactive)
[2023-09-24 08:22] LABS: Syphilis Screen Nonreactive (Nonreactive)
[2023-09-24 11:11] LABS: BV Int Neg Control Negative (Negative); BV Int Pos Control Positive (Positive)
== END 2023-09-23 11:40 | disposition home or self-care (01) ==
LOC: HO.LAB 11:39
PROVIDERS: PCP Internal Medicine; Visit Provider Advanced Practice Midwife
DX: Z11.4 Encounter for screening for human immunodeficiency virus [HIV] (principal); N89.8 Other specified noninflammatory disorders of vagina; Z20.2 Contact with and (suspected) exposure to infections with a predominantly sexual mode of transmission
CPT/HCPCS: 0353U; 86780; 86803; 87340; 87389; 87480; 87510; 87660

== ENCOUNTER 2024-01-25 19:28 | Outpatient (REF) | payer MEDICAID, SELFPAY ==
[2024-01-26 08:41] LABS: Bacterial Vaginosis PCR NEGATIVE (Negative); Candida Group PCR NOT DETECTED (Not Detect); Candida glab krusei PCR NOT DETECTED (Not Detect); Trichomonas vaginalis PCR NOT DETECTED (Not Detect)
== END 2024-01-25 19:29 | disposition home or self-care (01) ==
LOC: HO.HHCLNP 19:28
PROVIDERS: Visit Provider Advanced Practice Midwife
DX: N89.8 Other specified noninflammatory disorders of vagina (principal)
CPT/HCPCS: 0352U

== ENCOUNTER 2024-05-23 18:53 | Outpatient (REF) | payer MEDICAID, SELFPAY ==
[2024-05-24 05:31] LABS: Bacterial Vaginosis PCR POSITIVE (Negative); Candida Group PCR NOT DETECTED (Not Detect); Candida glab krusei PCR NOT DETECTED (Not Detect); Trichomonas vaginalis PCR NOT DETECTED (Not Detect)
== END 2024-05-23 18:54 | disposition home or self-care (01) ==
LOC: HO.LNP 18:53
PROVIDERS: Visit Provider Advanced Practice Midwife
DX: N89.8 Other specified noninflammatory disorders of vagina (principal)
CPT/HCPCS: 0352U

== ENCOUNTER 2024-07-12 11:20 | Outpatient (REF) | payer MEDICAID, SELFPAY ==
[2024-07-12 13:53] LABS: Alanine Aminotransferase 23 U/L (0-31); Albumin Level 3.9 g/dL (3.5-5.0); Alkaline Phosphatase 66 U/L (39-117); Anion Gap 13 (12-20); Aspartate Amino Transferase 33 U/L (5-31); Bilirubin Total 0.5 mg/dL (0.0-1.0); Blood Urea Nitrogen 9 mg/dL (9-16); Calcium 9.2 mg/dL (8.4-10.2); Carbon Dioxide 26 mmol/L (22-29); Chloride 100 mmol/L (96-108); Cholesterol 160 mg/dL (<200); Estimated Glomerular Filt Rate > 60; Glucose Random 90 mg/dL (60-115); HDL Cholesterol 33 mg/dL (>40); LDL Cholesterol Calculated 95 mg/dL (<100); Potassium 3.7 mmol/L (3.3-5.1); Sodium 135 mmol/L (135-145); Total Protein 7.4 g/dL (6.5-8.0); Triglycerides 160 mg/dL (<150)
[2024-07-12 13:57] LABS: TSH reflex Free T4 1.73 uIU/mL (0.32-4.0)
== END 2024-07-12 11:21 | disposition home or self-care (01) ==
LOC: HO.HHCL 11:20
PROVIDERS: Visit Provider Internal Medicine
DX: E66.813 Obesity, class 3 (principal); Z68.42 Body mass index [BMI] 45.0-49.9, adult
CPT/HCPCS: 36415; 80053; 80061; 84443

== ENCOUNTER 2024-08-05 11:57 | Outpatient (REF) | payer MEDICAID, SELFPAY ==
[2024-08-05 13:44] LABS: Monotest Negative (Negative)
== END 2024-08-05 11:58 | disposition home or self-care (01) ==
LOC: HO.HHCL 11:57
PROVIDERS: Visit Provider Emergency Medicine
DX: J02.9 Acute pharyngitis, unspecified (principal)
CPT/HCPCS: 36415; 86308; 87070; 87147

== ENCOUNTER 2024-08-08 09:17 | Emergency (ER) | payer MEDICAID, SELFPAY ==
[2024-08-08 09:22] VITALS: BP 117/77; PULSE 68; RESP 16; TEMP 36; O2SAT 97; BMI 45.1
[2024-08-08 10:11] LABS: IDNOW Serial# 58CA691E; Strep A Nucleic Acid Negative (Negative)
[2024-08-08 10:31] LABS: Influenza A PCR NEGATIVE (Negative); Influenza B PCR NEGATIVE (Negative); Resp Syncy Virus RNA Qual PCR NEGATIVE (Negative); SARS COV2 PCR INHOUSE NEGATIVE (Negative)
[2024-08-08 12:44] VITALS: BP 134/74; PULSE 76; RESP 18; TEMP 36.2; O2SAT 98
--- NOTE | 2024-08-08 13:49 | ED.GENADULT ---
HPI - General Adult General Chief complaint: Upper Respiratory Symptoms Stated complaint: Infected tonsils Time Seen by Provider: 08/08/24 12:32 Source: patient, family and RN notes reviewed Mode of arrival: ambulatory Limitations: no limitations History of Present Illness ED Provider: Tiffanie Atkinson PA-C HPI narrative: This is a 23-year-old female, with no known medical problems, who presents emergency department with complaints of sore throat x 4 days. Patient states that 3 days ago she was seen at an urgent care where they tested her for mono, and strep throat. She also had a throat culture which was negative. She states that her sore throat has continue to worsened pain. Patient is still able to swallow. She states that she has been alternating between ibuprofen and Tylenol for her pain which provides her with some relief. She states that she had a fever on Thursday, 3 days ago, has not had a fever since. She denies any congestion, ear pain, chest pain, shortness of breath, abdominal pain, nausea, vomiting or diarrhea. No other complaints or concerns at this time. MD complaint: Sore throat Onset (ago): day(s) Radiation: non-radiation Quality: aching Relieving factors: none Exacerbating factors: eating Associated symptoms: fever/chills Treatments prior to arrival: none Related Data Previous Rx's ?Medication ?Instructions ?Recorded ondansetron 4 mg disintegrating 4 mg PO Q6-8H PRN nausea and 12/17/22 tablet vomiting #10 tabs ihdjrcwbok-vbytxvlolqmmy-ihyurxjq 1 cap PO Q8H PRN pain #10 caps 04/12/23 50 mg-300 mg-40 mg capsule (Fioricet) amoxicillin 875 mg-potassium 1 tab PO BID 10 days #20 tabs 08/08/24 clavulanate 125 mg tablet Allergies Allergy/AdvReac Type Severity Reaction Status Date / Time No Known Allergies Allergy Verified 08/08/24 09:24 Review of Systems Review of Systems: Yes all other systems are reviewed and are negative Constitutional: Constitutional: Reports as per [facility] Past Medical History Medical History Hx of migraine headaches BMI 45.0-49.9, adult Family History Family History Mother Cervical cancer Social History Social History (Updated 09/23/23 @ 11:50 by Grace Eldridge CNM) Alcohol intake: current Alcohol intake frequency: a few times a month Patient Tobacco Use Status: Never used Tobacco Advance Directives: No Advance Directives Information Provided: Yes Current occupational status: employed 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, [employer] Sexual orientation: Straight/Heterosexual Gender identity: Female Physical Exam ED Vital Signs: Vital Signs - 24 hr 08/08/24 09:22 08/08/24 12:44 08/08/24 14:09 Temperature 96.8 F 97.2 F 97.2 F Pulse Rate 68 76 76 Respiratory Rate 16 18 18 Blood Pressure 117/77 134/74 134/74 Pulse Oximetry 97 98 98 Oxygen Delivery Method Room Air Room Air Room Air BMI result Body Mass Index 45.1 Const General: cooperative, comfortable and no acute distress Orientation/consciousness: patient oriented x3 Limitations: no limitations HENMT Other: Posterior oropharynx is erythematous, with bilateral exudates, uvula is midline. No trismus, drooling, or dysphonia. Head: Yes normal to inspection, Yes normocephalic and Yes atraumatic Ears: hearing grossly normal bilaterally and TM's normal bilaterally General nose exam: Normal external nose present Face and sinus: Yes normal facial exam Throat: Yes posterior oropharynx normal Eyes General: appearance normal, both eyes and all related structures Eyelids: Yes eyelids normal Conjunctivae: conjunctivae normal Sclerae: sclerae normal Pupils: Equal, round and reactive pupils present EOM: EOMs intact bilaterally Neck Neck: Yes normal visual inspection, Yes full ROM and Yes no lymphadenopathy Lymphatic: no lymphadenopathy noted Chest Chest palpation & inspection: normal inspection of the chest Resp Effort & Inspection: normal respiratory effort and able to speak in complete sentences Auscultation: clear to auscultation bilaterally, no crackles, no rales, no rhonchi and no wheezes Cardio Rate: regular rate Rhythm: regular rhythm Heart sounds: S1 normal heart sound present and S2 normal heart sound present GI Inspection: Yes normal to inspection Skin General skin exam: no rashes or lesions noted Trauma: no lacerations or abrasions Wounds: no wounds Neuro General: patient oriented x3 and moves all extremities Cranial nerves: Yes Equal, round and reactive pupils present Extrem General: Yes normal to inspection Right upper extremity: normal to inspection Left upper extremity: normal to inspection Right lower extremity: normal to inspection Left lower extremity: normal to inspection Medications Administered Discontinued Medications Generic Name Dose Route Start Last Admin Trade Name Rhonda PRN Reason Stop Dose Admin Dexamethasone Sodium Phosphate 10 mg 08/08/24 13:56 08/08/24 14:03 Dexamethasone Sod Phosphate 10 Mg/Ml Vial PO 08/08/24 13:57 10 mg ONCE ONE Administration Medical Decision Making Medical Decision Making [facility] Narrative: This is a 23-year-old female, with no known medical problems, who presents emergency department with complaints of sore throat x4 days. On arrival, vital signs within normal limits. She is speaking in full sentences under no acute distress, no trismus, drooling, or dysphonia. Posterior oropharynx is erythematous, with exudates noted bilaterally, no evidence of PS[employer]CHOTHER[employer]IST [employer] WORKER. Patient tested negative for strep, COVID, flu, RSV. Will treat as a tonsillitis with antibiotic, and 1 time dose of Decadron. She is handling secretions well without any trismus, drooling, or dysphonia. Given strict return precautions. Patient stable for discharge. Differential Diagnosis Differential Diagnoses: The differential diagnosis associated with the presentation includes PSYCHOTHER[employer]IST [employer] WORKER, strep pharyngitis, tonsillitis, uvulitis Lab Data [facility] Lab Attestation statement: I reviewed the patient's lab results. Negative Labs: Lab Results 08/08/24 Range/Units 09:38 Influenza Type A (PCR) NEGATIVE (Negative) Influenza Type B (PCR) NEGATIVE (Negative) RSV RNA Qual (PCR) NEGATIVE (Negative) SARS-CoV-2 RNA (RT-PCR) NEGATIVE (Negative) S. pyogenes GrpA JOEY Negative (Negative) Discharge Plan Discharge Clinical Impression: Acute tonsillitis Patient Disposition: Home, Self-Care Instructions: Tonsillitis (ED) Additional Instructions: You were seen in the emergency department due to a sore throat. You tested negative for flu, RSV, COVID and strep. Given the appearance of your throat, we are treating you for a bacterial infection, and inflammation in your tonsils with an antibiotic. Finish the entire course even if your symptoms improve. Saltwater gargles, tea with honey, and cold fluid can also help, soup can also help. We also medicated you with Decadron, this is a steroid, this lasts in your system for 3 days, this will help with inflammation. If any new or worsening symptoms occur including but not limited to difficulty swallowing, please seek emergent care Prescriptions: New amoxicillin-pot clavulanate 875-125 mg tablet 1 tab PO BID 10 Days Qty: 20 0RF No Action fywgsgimog-bygmzrzmcdddn-dtuo [Fioricet] 50-300-40 mg capsule 1 cap PO Q8H PRN (Reason: pain) Qty: 10 0RF ondansetron 4 mg tablet,disintegrating 4 mg PO Q6-8H PRN (Reason: nausea and vomiting) Qty: 10 0RF Stand Alone Forms: Work/School Release Interventions: ED Discharge Assessment Last Done: 08/08/24 14:09 Discharge Date/Time: 08/08/24 14:10 Print Language: Chinese
[2024-08-08] MEDS: dexAMETHasone sod phosphate 10 MG/ML VIAL PO (14:03)
[2024-08-08 14:09] VITALS: BP 134/74; PULSE 76; RESP 18; TEMP 36.2; O2SAT 98
== END 2024-08-08 14:10 | disposition home or self-care (01) ==
PROVIDERS: Emergency Provider Emergency Medicine; PCP Internal Medicine
DX: J03.90 Acute tonsillitis, unspecified (principal); Z03.818 Encounter for observation for suspected exposure to other biological agents ruled out
CPT/HCPCS: 0241U; 87651; 99283; J1100

== ENCOUNTER → 2024-09-20 14:15 | Outpatient (BNV) | payer MEDICAID, SELFPAY | PROVIDERS: PCP Internal Medicine; Visit Provider Internal Medicine | DX: N63.15 Unspecified lump in the right breast, overlapping quadrants (principal) | CPT/HCPCS: 76642 ==

== ENCOUNTER 2025-01-01 09:32 | Emergency (ER) | payer MEDICAID, SELFPAY ==
[2025-01-01 09:35] VITALS: BP 131/73; PULSE 78; RESP 18; TEMP 36.2; O2SAT 97; BMI 48.8
[2025-01-01 10:03] LABS: UPreg QC Valid YES; Urine Pregnancy NEGATIVE (NEGATIVE)
[2025-01-01 10:05] LABS: Appearance Urine Cloudy; Color Urine Red; Glucose Urine UA Negative (Negative); Leukocyte Esterase Urine Small (1+) (Negative); Nitrite Urine Negative (Negative); PH 5.5 (5.0-9.0); Specific Gravity - Urine 1.015 (1.005-1.025); UMIC TRIGGER UACC YES; Urine Blood Large (3+) (Negative); Urine Ketones Negative (Negative); Urine Protein 30 (1+) mg/dL (Neg-Trace)
[2025-01-01 10:06] LABS: Bacteria Urine Trace (None Seen); Hyaline Casts Urine 0-2 /LPF (0-2); RBC Urine >20 /HPF (0-2); UACC Culture Trigger YES
[2025-01-01 10:49] LABS: MANUAL DIFF FLAG NO
[2025-01-01 10:50] LABS: Basophils Percent Auto 0.3 % (0-2); Eosinophils Absolute Auto 0.2 X10*3/uL (0.0-0.4); Hematocrit 35.9 % (37.0-47.0); Hemoglobin 12.6 g/dl (12.0-16.0); Imm Gran Abs Auto 0.04 X10*3/uL (0.00-0.03); Imm Gran Pct Auto 0.6 % (0.0-0.4); Lymphocytes Absolute Auto 1.6 X10*3/uL (1.2-4.9); Lymphocytes Percent Auto 24.6 % (20-40); Mean Corpuscular HGB Conc 35.1 g/dl (31.0-35.0); Mean Corpuscular Hemoglobin 28.8 pg (27.0-33.0); Mean Platelet Volume 10.2 fL (9.4-12.3); Monocytes Absolute Auto 0.6 X10*3/uL (0.1-1.2); Monocytes Percent Auto 8.2 % (2-11); Neutrophils Absolute Auto 4.2 x10*3/uL (2.0-8.3); Neutrophils Percent Auto 63.3 % (45-73); Platelet Count 281 X10*3/uL (160-400); Red Blood Count 4.38 X10*6/uL (4.20-5.50); Red Cell Distribution Width 13.6 % (11.0-16.0); White Blood Count 6.7 X10*3/uL (4.8-10.8)
--- NOTE | 2025-01-01 10:57 | ED.GENADULT ---
HPI - General Adult General Chief complaint: Vaginal Bleeding Stated complaint: heavy vaginal bleeding Time Seen by Provider: 01/01/25 10:45 Source: patient, RN notes reviewed and old records reviewed Mode of arrival: ambulatory Limitations: no limitations History of Present Illness ED Provider: Mitali [facility] narrative: Patient is a 24-year-old female presenting to the emergency department with complaint of heavy vaginal bleeding for the past 2 days. States she used a boric acid suppository 3 days ago which she has used in the past without adverse effect. That day she noted some pink discharge. Then yesterday and today she has been having heavy vaginal bleeding, states she is going through 2-3 pads per hour. Denies feeling dizzy or lightheaded, denies syncope. Reports some lower abdominal cramping. LMP 12/12/24. Not on any type of contraception. Denies any new sexual partners or concern for STIs but is amenable to testing. MD complaint: vaginal bleeding Onset (ago): day(s) Related Data Previous Rx's ?Medication ?Instructions ?Recorded ondansetron 4 mg disintegrating 4 mg PO Q6-8H PRN nausea and 12/17/22 tablet vomiting #10 tabs xhkubxhesb-huquqgiqafrhh-uzlxvpqq 1 cap PO Q8H PRN pain #10 caps 04/12/23 50 mg-300 mg-40 mg capsule (Fioricet) amoxicillin 875 mg-potassium 1 tab PO BID 10 days #20 tabs 08/08/24 clavulanate 125 mg tablet Allergies Allergy/AdvReac Type Severity Reaction Status Date / Time No Known Allergies Allergy Verified 01/01/25 09:37 Review of Systems Review of Systems: As per HPI Yes all other systems are reviewed and are negative Constitutional: Constitutional: Reports as per HPI [facility] Past Medical History Medical History Hx of migraine headaches BMI 45.0-49.9, adult Family History Family History Mother Cervical cancer Social History Social History (Updated 09/23/23 @ 11:50 by Grace Eldridge CNM) Alcohol intake: current Alcohol intake frequency: a few times a month Patient Tobacco Use Status: Never used Tobacco Advance Directives: No Advance Directives Information Provided: Yes Current occupational status: employed 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 Blood pressure normal. Heart rate normal. Respiratory rate normal. Temperature normal. Oxygen saturation normal. Const General: cooperative, healthy appearing and no acute distress Orientation/consciousness: oriented to person, oriented to place, oriented to time and patient oriented x3 Limitations: no limitations HENMT Head: Yes normocephalic and Yes atraumatic Ears: external ears normal General nose exam: Normal external nose present Face and sinus: Yes face symmetric Mouth: oropharynx normal and moist mucous membranes Throat: Yes uvula midline Eyes Pupils: Equal, round and reactive pupils present Neck Neck: Yes normal visual inspection and Yes supple Resp Effort & Inspection: normal respiratory effort and able to speak in complete sentences Auscultation: clear to auscultation bilaterally Cardio Rate: regular rate Rhythm: regular rhythm Heart sounds: S1 normal heart sound present and S2 normal heart sound present GI Palpation (GI): Soft to palpation and nontender Auscultation: normoactive bowel sounds Other: pelvic exam chaperoned by MARYJANE Schmid General: Yes no CVA tenderness External Female Exam: normal external appearance Speculum Exam - Vagina: normal appearance of the vagina Speculum Exam - Cervix: normal appearance of the cervix, normal palpation, Cervical os closed, Abnormal cervical discharge present bloody (mild amount of vaginal bleeding noted during exam) and nontender Bimanual exam- vagina & uterus: normal palpation and No Cervical tenderness present Back/Spine/Pelvis Back: no CVA tenderness Skin General skin exam: elasticity normal and turgor normal Neuro General: oriented to person, oriented to place, oriented to time, patient oriented x3, moves all extremities, no focal motor deficits and CN's II-XI intact bilaterally Cranial nerves: Yes Equal, round and reactive pupils present Cognition (Neuro): normal cognition Extrem General: Yes full ROM, Yes no pedal edema and Yes no calf tenderness Psych Mental Status: mental status grossly normal Affect: normal affect Thought process: Normal thought process present Medical Decision Making Medical Decision Making MDM Narrative: Patient is a 24-year-old female presenting to the emergency department with complaint of heavy vaginal bleeding for the past 2 days. On exam patient is awake, A+Ox3, VS WNL, afebrile, normal neurological exam without focal deficits, physical exam findings as above. Given reported symptoms and physical exam findings, initial differential includes but is not limited to abnormal uterine bleeding, threatened , leiomyoma, PCOS, STI, vaginitis. Labs notable for normal H&H. Pelvic exam notable to mild amount of bleeding, no CMT. UA notable for 1+ leukocytes, 3+ blood, 6-10 WBCs with 3-5 epithelials, likely contamination, do not suspect UTI as patient denies urinary symptoms. Patient stable for discharge at this time with strict return precautions discussed at bedside. Sees Grace Eldridge CNM here at [facility], will follow up outpatient. Patient verbalized understanding of and agreement with plan. Differential Diagnosis Differential Diagnoses: The differential diagnosis associated with the presentation includes As per [facility] Admission/Observation Consideration of admission/observation: Escalation of care including admission/observation considered Patient would have been admitted to the hospital had their work up had any findings where hospital admission was appropriate and their clinical presentation warranted hospital admission. Lab Data [facility] Lab Attestation statement: I reviewed the patient's lab results. as per [facility] 01/01/25 10:45 01/01/25 10:45 Labs: Lab Results 01/01/25 01/01/25 Range/Units 09:50 10:45 WBC 6.7 (4.8-10.8) X10*3/uL RBC 4.38 (4.20-5.50) X10*6/uL Hgb 12.6 (12.0-16.0) g/dl Hct 35.9 L (37.0-47.0) % MCV 82.0 (80.0-98.0) fL MCH 28.8 (27.0-33.0) pg MCHC 35.1 H (31.0-35.0) g/dl RDW 13.6 (11.0-16.0) % Plt Count 281 D (160-400) X10*3/uL MPV 10.2 (9.4-12.3) fL Immature Gran % (Auto) 0.6 H (0.0-0.4) % Neut % (Auto) 63.3 (45-73) % Lymph % (Auto) 24.6 (20-40) % [place] % (Auto) 8.2 (2-11) % Eos % (Auto) 3.0 (0-4) % Baso % (Auto) 0.3 (0-2) % Lymph # (Auto) 1.6 (1.2-4.9) X10*3/uL [place] # (Auto) 0.6 (0.1-1.2) X10*3/uL Eos # (Auto) 0.2 (0.0-0.4) X10*3/uL Baso # (Auto) 0.0 (0.0-0.2) X10*3/uL Abs Immat Gran (auto) 0.04 H (0.00-0.03) X10*3/uL Absolute Neuts (auto) 4.2 (2.0-8.3) x10*3/uL Absolute Nucleated RBC 0.000 (0.0-0.012) X10*3/uL Nucleated RBC % (auto) 0.0 (0.0-0.2) /100WBC Sodium 138 (135-145) mmol/L Potassium 3.9 (3.3-5.1) mmol/L Chloride 109 H (96-108) mmol/L Carbon Dioxide 22 (22-29) mmol/L Anion Gap 11 L (12-20) BUN 10 (9-16) mg/dL Creatinine 0.80 (0.5-1.4) mg/dL Estim Creat Clear Calc 169.2 Estimated GFR > 60 Random Glucose 101 (60-115) mg/dL Calcium 8.7 (8.4-10.2) mg/dL Total Bilirubin 0.3 (0.0-1.0) mg/dL AST 31 (5-31) U/L ALT 25 (0-31) U/L Alkaline Phosphatase 67 (39-117) U/L Total Protein 7.5 (6.5-8.0) g/dL Albumin 3.9 (3.5-5.0) g/dL Urine Color Red A Urine Appearance Cloudy Urine pH 5.5 (5.0-9.0) Ur Specific [place] 1.015 (1.005-1.025) Urine Protein 30 (1+) H (Neg-Trace) mg/dL Urine Glucose (UA) Negative (Negative) mg/dL Urine Ketones Negative (Negative) mg/dL Urine Blood Large (3+) H (Negative) Urine Nitrite Negative (Negative) Ur Leukocyte Esterase Small (1+) H (Negative) Urine RBC >20 H (0-2) /HPF Urine WBC 6-10 H (0-5) /HPF Ur Squamous Epith Cells 3-5 (0-2) /HPF Urine Bacteria Trace (None Seen) Hyaline Casts 0-2 (0-2) /LPF Urine Test NEGATIVE (NEGATIVE) External Record Review External record reviewed: Inpatient record, Office record and Outpatient record Discharge Plan Discharge Clinical Impression: Dysfunctional uterine bleeding Patient Disposition: Home, Self-Care Instructions: Abnormal (Dysfunctional) Uterine Bleeding (ED) Additional Instructions: You were seen in the Emergency Department today for abnormal vaginal bleeding. Your blood counts were stable. It is important if you were given medications today to help with the bleeding to take them as prescribed. Do not take aspirin containing products. You need to follow up with your primary care doctor or OBGYN. Please return for worsening symptoms such as pain, dizziness, fainting, bleeding this is much heavier than a period and you are having large clots bigger than a golf ball. Please see list of OGBYN providers below if you do not have one. OBGYN and Midwifery [facility] [address] [place] [address] [id number] [facility] [address] [phone] [facility] [address] [phone] [facility] [place] [phone] [facility] [place] [phone] Prescriptions: No Action rkrekfgyit-upmvwpnuwiwat-ongq [Fioricet] 50-300-40 mg capsule 1 cap PO Q8H PRN (Reason: pain) Qty: 10 0RF ondansetron 4 mg tablet,disintegrating 4 mg PO Q6-8H PRN (Reason: nausea and vomiting) Qty: 10 0RF amoxicillin-pot clavulanate 875-125 mg tablet 1 tab PO BID 10 Days Qty: 20 0RF Referrals: Jeet Bajwa MD [Physician] - Print Language: [place] Citizen
[2025-01-01 11:03] LABS: Alanine Aminotransferase 25 U/L (0-31); Albumin Level 3.9 g/dL (3.5-5.0); Alkaline Phosphatase 67 U/L (39-117); Anion Gap 11 (12-20); Aspartate Amino Transferase 31 U/L (5-31); Bilirubin Total 0.3 mg/dL (0.0-1.0); Blood Urea Nitrogen 10 mg/dL (9-16); Calcium 8.7 mg/dL (8.4-10.2); Carbon Dioxide 22 mmol/L (22-29); Chloride 109 mmol/L (96-108); Creatinine Clr Calc Pharmacy 169.2; Estimated Glomerular Filt Rate > 60; Glucose Random 101 mg/dL (60-115); Potassium 3.9 mmol/L (3.3-5.1); Sodium 138 mmol/L (135-145); Total Protein 7.5 g/dL (6.5-8.0)
--- OUTSIDE RECORDS SUMMARY | 2025-01-01 11:17 | XMS_ITS | Clinical Summary ---
Author Organization [employer] Address [address] [place] [address] [address] [place] [address] Care Team Providers Care Chief Enterprise Architect Name Role Phone Madison Ray MD Primary Care Provide r Allergies No known active allergies Medications bacitracin 500 UNIT/GM ointment use 2-3 times a day to clean dry skin 03/26/20 21 Active cholecalciferol (Vitamin D-3) 25 MCG (1000 UT) capsule Take 1 capsule by mouth 1 (one) time each day. 04/09/20 21 Active erythromycin with Ethanol (Emgel) 2 % gel Apply topically every 6 (six) hours. 05/30/20 21 Active fluconazole (Diflucan) 150 MG tablet Take 1 tablet by mouth. 04/09/20 21 Active fluconazole (Diflucan) 200 MG tablet take 1 tablet by oral route every day for 14 days 01/04/20 22 Active polyethylene glycol, PEG, 3350 (MiraLax) 17 GM/SCOOP powder take (17G) by oral route every day mixed with 8 oz. water, juice, coffee or tea 03/26/20 21 Active famotidine (Pepcid) 20 MG tabletIndications: Epigastric pain Take 1 tablet (20 mg) by mouth 2 times daily. 60 tablet 11 12/25/19 23 Active Additional Information Patient not taking.Reported on 07/30/2023 ondansetron ODT (Zofran-ODT) 4 MG disintegrating tablet DISSOLVE 1 TABLET IN MOUTH EVERY 6 TO 8 HOURS NEEDED FOR NAUSEA AND VOMITING 12/18/19 23 Active fluticasone (Flonase) 50 MCG/ACT nasal spray INSTILL 1-2 SPRAYS IN EACH NOSTRIL ONCE DAILY IN THE MORNING 48 g 03/30/20 23 Active pramoxine-hydrocor tisone, perianal, (Analpram HC) 2.5-1 % creamIndications:R ectal fissure INSERT INTO THE RECTUM TWICE A DAY 30 g 1 09/23/19 24 Active hydrocortisone 2.5 % cream Apply topically 2 times daily. 28 g 1 09/30/19 24 Active hydrocortisone (Anusol-HC) 2.5 % rectal creamIndications:A nal fissure, unspecified INSERT RECTALLY TWICE DAILY 30 g 10/06/19 24 Active amitriptyline (Elavil) 10 MG tabletIndications: Migraine without aura and without status migrainosus, not intractable Take 1 tablet (10 mg) by mouth at bedtime. 30 tablet 12/10/19 24 Active cetirizine (ZyrTEC) 10 MG tabletIndications: Seasonal allergic rhinitis due to pollen Take 1 tablet (10 mg) by mouth Once per day. 90 tablet 12/10/19 24 Active Semaglutide-Weight Management (Wegovy) 0.25 MG/0.5ML solution auto-injectorIndic ations:Class 3 severe obesity due to excess calories without serious comorbidity with body mass index (BMI) of 45.0 to 49.9 in adult Inject 0.5 mL (0.25 mg) under the skin 1 (one) time per week. 2 mL 07/11/20 24 Active acetaminophen (Tylenol) 500 MG tablet Take 2 tablets (1,000 mg) by mouth every 6 (six) hours if needed for moderate pain or fever for up to 25 doses. 50 tablet 08/05/20 24 Active ibuprofen 400 MG tablet Take 1 tablet (400 mg) by mouth every 6 (six) hours if needed for moderate pain, fever or headaches. 30 tablet 08/05/20 24 Active Tirzepatide-Weight Management (Zepbound) 2.5 MG/0.5ML solution auto-injectorIndic ations:Class 3 severe obesity due to excess calories without serious comorbidity with body mass index (BMI) of 45.0 to 49.9 in adult Inject 0.5 mL (2.5 mg) under the skin 1 (one) time per week. 2 mL 08/25/19 25 Active Active Problems Problem Noted Date Diagnosed Date Breast nodule 08/30/2024 Assessment & Plan (08/30/2024 12:33 PM EST): Patient will be contacted with results Class 3 severe obesity due t o excess calories without serious comorbidity with body mass index (BMI) of 45.0 to 49.9 in adult 07/11/2024 Assessment & Plan (07/11/2024 4:50 PM EST): Counseling done Labs ordered I will prescribed for patient wegovy Vaginal discomfort 12/10/2023 Assessment & Plan (12/10/2023 1:47 PM EDT): Patient with recurrent problem has being treated before for BV and yeast infections, I will do internal referral to PATIENT CARE MANAGER Chest pain 08/01/2023 Assessment & Plan (08/01/2023 7:13 PM EST): -EKG today V1 TWI otherwise no other findings, HR 51 QTC 378 Normal lung and CV exam. No associated GI symptoms, No concerning skin rashes . Pain is reproduced w palpation making most likely musculoskeletal in nature. -trial w warm compresses, emla cream,muscle relaxant , tylenol prn NSAIDs prn -alarm signs and symptoms discussed and if persist will need to consider repeating chests image. Subacute cough 06/12/2023 Assessment & Plan (06/12/2023 11:08 AM EDT): Drink plenty of water Patient will be contacted with XRAY result Elevated blood pressure reading 06/12/2023 Assessment & Plan (06/12/2023 11:09 AM EDT): I instructed patient to monitor her BP at home and keep log F/u 2 weeks televisit Migraine without aura and wi thout status migrainosus, not intractable 04/27/2023 Assessment & Plan (07/11/2024 4:51 PM EST): I advise to avoid migraine triggers like red wine, chocolate, cheese, strong perfumes C/w same interventions Assessment & Plan (04/07/2024 1:39 PM EDT): I advise to avoid migraine triggers like red wine, chocolate, cheese, strong perfumes Assessment & Plan (12/10/2023 1:47 PM EDT): I advise to avoid migraine triggers like red wine, chocolate, cheese, strong perfumes C/w amitryptiline 10mg and Fioricet PRN Assessment & Plan (09/10/2023 4:21 PM EST): I advise to avoid migraine triggers like red wine, chocolate, cheese, strong perfumes RTc 3 months Assessment & Plan (06/12/2023 11:10 AM EDT): I advise to avoid migraine triggers like red wine, chocolate, cheese, strong perfumes Star amitriptyline 10mg at bed time I will renew her fioricept TC 2 weeks televisit Assessment & Plan (04/27/2023 3:24 PM EDT): I advise to avoid migraine triggers like red wine, chocolate, cheese, strong perfumes C/w Fioricet PRN Bacterial vaginosis 04/27/2023 Annual physical exam 01/05/2023 Assessment & Plan (01/05/2023 3:25 PM EDT): Pt is here for work exam, needs clearance that she is free of communicable disease, namely TB She has no history, per CDC screening form that would necessitate TB screening. Work letter given that she is clear to work Dyshidrotic eczema 01/05/2023 Assessment & Plan (01/05/2023 3:25 PM EDT): Keep hands and feet as dry and open to air as possible Steroid cream nightly until resolves Seasonal allergic rhinitis due to pollen 023 Assessment & Plan (01/05/2023 3:26 PM EDT): Flonase and long-acting antihistamine prescribed Candidiasis 07/29/2022 Foot pain 07/29/2022 Prediabetes 07/29/2022 Assessment & Plan (07/11/2024 4:50 PM EST): Counseling done I will start her on wegovy Assessment & Plan (09/10/2023 4:20 PM EST): Today extensive discussion was done about life style modifications I advise healthy diet (low calorie) and cardiovascular exercise Rectal fissure 07/29/2022 Assessment & Plan (11/11/2022 2:54 PM EDT): Hydrocortisone cream prescribed PRN Vaginal discharge 07/29/2022 Assessment & Plan (04/27/2023 3:25 PM EDT): I will treat her empirically for BV and refer her back again to PATIENT CARE MANAGER Assessment & Plan (11/11/2022 2:54 PM EDT): Likely recurrent BV BV panel ordered today I will treat empirically for recurrent BV and also I will treat for yeast infection Obesity 11/14/2016 Encounters Date Type Department Care Team Description 01/01/2025 Orders Only GENERIC EXTERNAL DATA DEPARTMENT Provider, Generic External Data 10/28/2024 Population Health Risk Score [facility] () Department [address] [place] [id number] Provider, Population Health Generic from Last 3 Months Immunizations Immunization Administration Dates Next Due DTaP / HiB / IPV 05/17/2000,03/17/2000 DTaP, 5 pertussis antigens 02/27/2005,07/22/2001 ,07/17/2000 HPV 9-Valent 12/04/2015 HPV, Quadrivalent 01/04/2015,08/27/2012 Hep A, ped/adol, 2 dose 12/04/2015,01/04/2015 Hep B, Adolescent or Pediatric 10/15/2000,1999,1999 Hib (HbOC) 02/19/2001,07/17/2000 IPV 02/27/2005,07/22/2001 Influenza injectable quadriv alent preservative free 09/10/2023,07/30/2020,07/05/2019,08/26 Influenza, Split (incl. juan fied surface antigen) 08/27/2012 Influenza, seasonal, injecta ble, preservative free 07/11/2024 MMR 02/27/2005,02/19/2001 Meningococcal MCV4P ACYW-135 10/07/2017,01/05/20 15 Pneumococcal Conjugate PCV 7 02/19/2001, 07/17/2000,05/17/2000,03/17 Tdap 01/04/2015 Varicella 01/04/2015,07/22/2001 Family History Medical History Relation Name Comments Diabetes Mother Relation Name Status Comments Mother Social History Tobacco Use Types Packs/Day Years Used Date Smoking Tobacco: Never Passive Smoke Exposure: Never Smokeless Tobacco: Never Tobacco Cessation:Counseling Given: Not Answered Alcohol Use Standard Drinks/Week Comments Not Currently 0 (1 standard drink = 0.6 oz pur e alcohol) sometimes Depression Answer Date Recorded Patient Health Questionnaire-9 Score 0 04/07/2024 Patient Health Questionnaire-9 Score 0 04/07/2024 Last PHQ-9: Questionnaire Data Not on file 0 04/07/2024 Housing Stability Answer Date Recorded What is your housing situation today? I have lavernerose marie garza 06/30/[address] you li ve. Do you have problems with any of the following? None of the above 06/30/2024 Food Insecurity Answer Date Recorded Within the past 12 months, y ou worried that your food would run out before you got money to buy more: Never True 06/30/2024 Within the past 12 months,th e food you bought just didn't last and you didn't have enough money to get more: Never True Transportation Answer Date Recorded In the past 12 months, has l ack of transportation kept you from medical appts, meetings, work or from getting things needed for daily living? No 06/30/2024 Utilities Answer Date Recorded In the past 12 months, has t he electric, gas, oil or water company threatened to shut off services in your home? No 06/30/2024 Depression Answer Date Recorded Patient Health Questionnaire-2 Score 0 04/07/2024 Internet Access Answer Date Recorded Internet Access Q1 Yes 06/30/2024 Internet Access Q2 Not on file 06/30/2024 Comments No Sex and Gender Information Value Date Recorded Sex Assigned at Female 06/16/2022 10:16 AM EDT Legal Sex Female 10:16 AM EDT Gender Identity Female 06/16/2022 10:16 AM EDT Sexual Orientation Straight 06/16/2022 10 :16 AM EDT Last Filed Vital Signs Vital Sign Reading Time Taken Comments Blood Pressure 118/72 08/30/2024 11:59 AM EST Pulse 75 08/30/2024 11:59 AM EST Temperature 36.4 ??C (97.6 ??F) 08/30/2024 11:[address] Respiratory Rate 17 08/30/2024 11:59 AM EST Oxygen Saturation 97% 08/05/2024 11:33 AM EST Inhaled Oxygen Concentration - - Weight 142 kg (314 lb) 08/30/2024 11:59 AM EST Height 175.3 cm (5' 9 ) 08/30/2024 11:59 AM EST Body Mass Index 46.37 08/30/2024 11:59 AM EST Plan of Treatment Upcoming Encounters Date Type Department Care Team (Late st Contact Info) Description 02/15/2025 9:00 AM EDT Office Visit [facility] [address] [place] [address] Madison Ray MD [address] [place] [address] Health Maintenance Due Date Last Done Comments COVID-19 Vaccine ( season) 2024 05/30/2021, 02/04/2021 Diagnostic Breast Imaging 12/18/2024 09/20/2024 DTaP/Tdap/Td Vaccines (7 - Td or Tdap) 01/04/2025 01/04/2015, 02/27/2005, 07/22/2001, Additional history exists Depression Screening 04/07/2025 04/07/2024, 04/07/20 24 Diabetes: Hemoglobin A1C 05/23/2025 024, 09/10/2023, 03/13/2021 Family Planning (PISQ) 05/23/2025 05/23/2024 SDOH Screening 06/30/2025 06/30/2024 Alcohol/Substance Use Screening 07/11/2025 07/11/2024 Tobacco Screening 08/30/2025 08/30/2024 Mammogram 09/20/2026 09/20/2024 Pap Smear 09/23/2026 09/23/2023, 02/15, 03/07/2021 Lipid Panel 07/12/2029 07/12/2024, 03/13/2021 Zoster Vaccines (1 of 2) 12/15/2049 RSV Patients and Patients Aged 60 years or older (1 - 1-dose 75+ series) 12/15/2074 Hepatitis B Vaccines Completed 10/15/2000, 03/17/2000, 1999 HIB Vaccines Completed 02/19/2001, 08/1999, 05/17/2000, Additional history exists Pneumococcal Vaccine: Pediatrics (0 to 5 Years) and At-Risk Patients (6 to 49) Years) Aged Out 02/19/2001, 07/17/2000, 05/17/2000, Additional history exists No longer eligible based on patient's age to complete this topic IPV Vaccines Completed 02/27/2005, 01/2001, 05/17/2000, Additional history exists HPV Vaccines Completed 12/04/2015, 12/16, 08/27/2012 Hepatitis A Vaccines Completed 12/04/2015, 01/05/20 15 Meningococcal Vaccine Completed 10/07/2017, 015 HIV Screening Completed 09/23/2023, 03/03/2022 Hepatitis C Screening Completed 09/23/2023, 022 Influenza Vaccine Completed 07/11/2024, , 07/30/2020, Additional history exists Meningococcal B Vaccine Aged Out No l onger eligible based on patient's age to complete this topic RSV under 20 months Aged Out No longe r eligible based on patient's age to complete this topic Rotavirus Vaccines Aged Out No longer eligible based on patient's age to complete this topic Procedures Procedure Name Priority Date/Time Associated Diagnosis Comments COMPREHENSIVE METABOLIC PANEL Routine 01/01/2025 10:45 AM EDT CBC WITH AUTO DIFFERENTIAL Routine 01/01/2025 10:45 AM EDT URINALYSIS, COMPLETE, WITH REFLEX TO CULTURE Routine 01/01/2025 9:50 AM EDT HCG, QL, URINE Routine 01/01/2025 9:50 AM EDT BI US BREAST LIMITED RIGHT Routine 09/20/2024 2:22 PM EST LIPID PANEL, STANDARD Routine 07/12/2024 11:22 AM EST Class 3 severe obesity due to excess calories without serious comorbidity with body mass index (BMI) of 45.0 to 49.9 in adult (CMS/HCC) POCT GLYCATED HEMOGLOBIN, TOTAL Routine 05/23/2024 1:51 PM EDT Prediabetes HEPATITIS C AB W/REFL TO HCV RNA, QN, PCR Routine 09/23/2023 12:01 PM EST HIV 1/2 ANTIGEN/ANTIBODY, FOURTH GENERATION W/RFL Routine 09/23/2023 12:01 PM EST PAP SMEAR Routine 09/23/2023 11:39 AM EST from Last 3 Months or Most Recently Relevant to Health Maintenance Results * (ABNORMAL) CBC auto differential (01/01/2025 10:45 AM EDT) White Blood Count 6.7 4.8 - 10.8 X10*3/uL [facility] Red Blood Count 4.38 4.20 - 5.50 X10*6/uL [facility] Hemoglobin 12.6 12.0 - 16.0 g/dl [facility] Hematocrit 35.9(L) 37.0 - 47.0 % [facility] Mean Corpuscular Volume 82.0 80.0 - 98.0 fL [facility] Mean Corpuscular Hemoglobin 28.8 27.0 - 33.0 pg [facility] Mean Corpuscular HGB Conc 35.1(H) 31.0 - 35.0 g/dl [facility] Red Cell Distribution Width 13.6 11.0 - 16.0 % [facility] Platelet Count 281 160 - 400 X10*3/uL [facility] Mean Platelet Volume 10.2 9.4 - 12.3 fL [facility] Neutrophils Percent Auto 63.3 45 - 73 % [facility] Imm Gran Pct Auto 0.6(H) 0.0 - 0.4 % [facility] Lymphocytes Percent Auto 24.6 20 - 40 % [facility] Monocytes Percent Auto 8.2 2 - 11 % [facility] Eosinophils Percent Auto 3.0 0 - 4 % [facility] Basophils Percent Auto 0.3 0 - 2 % [facility] NRBC Pct Auto 0.0 0.0 - 0.2 /100WBC [facility] Neutrophils Absolute Auto 4.2 2.0 - 8.3 x10*3/uL [facility] Imm Gran Abs Auto 0.04(H) 0.00 - 0.03 X10*3/uL [facility] Lymphocytes Absolute Auto 1.6 1.2 - 4.9 X10*3/uL [facility] Monocytes Absolute Auto 0.6 0.1 - 1.2 X10*3/uL [facility] Eosinophils Absolute Auto 0.2 0.0 - 0.4 X10*3/uL [facility] Basophils Absolute Auto 0.0 0.0 - 0.2 X10*3/uL [facility] NRBC Abs Auto 0.000 0.0 - 0.012 X10*3/uL [facility] 01/01/2025 10:4 5 AM EDT 01/01/2025 10:47 AM EDT us Generic External Data Provider LAB BLOOD ORDERAB LES Final Result [facility] [address] [place] [address] [phone] * (ABNORMAL) Comprehensive Metabolic Panel (01/01/2025 10:45 AM EDT) Pathologist [facility] Sodium 138 135 - 145 mmol/L [facility] Potassium 3.9 3.3 - 5.1 mmol/L [facility] Chloride 109(H) 96 - 108 mmol/L [facility] Carbon Dioxide 22 22 - 29 mmol/L [facility] Anion Gap 11(L) 12 - 20 [facility] Urea Nitrogen (BUN) 10 9 - 16 mg/dL [facility] Creatinine, Serum 0.80 0.5 - 1.4 mg/dL [facility] Creatinine Clr Calc Pharmacy 169.2 [facility] Comment:Provided height and weight: 175.26 cm,149.9 kg.eGFR (calculated from the MDRD study equation) and eCrCl(calculated from the Cockcroft-Gault equation) are based ondifferent parameters and may not yield comparable results.If eCrCl result is absurd, please check patient'sheight/weight. Estimated Glomerular Filt Rate >60 [facility] Comment:Chronic Kidney Disea se: Estimated GFR < 60 mL/min/1.60d3Uwjwps Kidney Disease: Estimated GFR < 15 mL/min/1.73m2 Glucose 101 60 - 115 mg/dL [facility] Calcium 8.7 8.4 - 10.2 mg/dL [facility] Bilirubin, Total 0.3 0.0 - 1.0 mg/dL [facility] Aspartate Amino Transferase 31 5 - 31 U/L [facility] Alanine Aminotransferase 25 0 - 31 U/L [facility] Total Protein 7.5 6.5 - 8.0 g/dL [facility] Albumin Level 3.9 3.5 - 5.0 g/dL [facility] Alkaline Phosphatase 67 39 - 117 U/L [facility] 01/01/2025 10:4 5 AM EDT 01/01/2025 10:47 AM EDT us Generic External Data Provider LAB BLOOD ORDERAB LES Final Result [facility] [address] [place] [address] [phone] * (ABNORMAL) Urinalysis, Complete, with Reflex to Culture (01/01/2025 9:50 AM EDT) Color Urine Red(A) [facility] Appearance Urine Cloudy [facility] PH 5.5 5.0 - 9.0 [facility] Glucose Urine UA Negative Negative mg/dL [facility] Urine Blood Large (3+)(A) Negative [facility] Specific [place] - Urine 1.015 1.005 - 1.025 [facility] Urine Protein 30 (1+)(A) Neg-Trace mg/dL [facility] Urine Ketones Negative Negative mg/dL [facility] Nitrite Urine Negative Negative [facility] Leukocyte Esterase Urine Small (1+)(A) Negative [facility] RBC Urine >20(A) 0 - 2 /HPF [facility] Urine WBC 6-10(A) 0 - 5 /HPF [facility] Urine Squamous Epithelial Cell 3-5 0 - 2 /HPF [facility] Urine Bacteria Trace None Seen [facility] Hyaline Casts, Urine 0-2 0 - 2 /LPF [facility] 01/01/2025 9:50 AM EDT 01/01/2025 9:55 AM EDT Narrative [facility] - 01/01/2025 10:08 AM EDT [id number], [employer] us Generic External Data Provider LAB URINE ORDERAB LES Final Result [facility] [address] [place] [address] [phone] * HCG, Qualitative, Urine (01/01/2025 9:50 AM EDT) Urine NEGATIVE NEGATIVE [facility] Comment:This test was develo ped to detect early . Falsenegative results may occur after the 5th - 7th week ofpregnancy when using this test method. If clinicallyindicated, consider a serum hCG. 01/01/2025 9:50 AM EDT 01/01/2025 9:55 AM EDT us Generic External Data Provider LAB URINE ORDERAB LES Final Result Performing Organization Address [facility]/State/ZIP Co de Phone Number [facility] [address] [facility] [place] [phone] * BI US Breast Limited Right (09/20/2024 2:22 PM EST) Anatomical Region Laterality Modality Breast Right Ultrasound 09/20/2024 2:22 PM EST Narrative 09/20/2024 3:28 PM EST ? [facility] [place] ? [address] ?[place] [address] ? Ultrasound Report ? Signed ? Patient: Kiniel,Shaneice ?MR#: [id number] ?? [id number] ? : 2000 ?Acct:[id number] ? Age/Sex: 23 / F ?ADM Date: 09/20/24 ? Loc: HO.MAMMO ? Attending Dr: Madison Najera MD ? Ordering Physician: Madison Ray MD ?? Date of Service: 09/20/24 ?? Procedure(s): US breast RT limited mamm only ?? Accession Number(s): [id number] ? cc: Madison Ray MD ? EXAMINATION: ?? US DIAGNOSTIC ULTRASOUND BREAST, RIGHT ? CLINICAL INFORMATION: ? 23-year-old female with right breast palpable lump for one month. ?? No family history of breast cancer. ?? No history of trauma or injury.. ? COMPARISON: ?? Comparison is made with relevant prior imaging. ? TECHNIQUE: ?? Ultrasound of the breast is performed with real-time butler scale imaging ?? and color Doppler. ? FINDINGS: ?? Targeted color Doppler ultrasound scanning in the area the patient's ?? palpable lump at 3:00 7 cm from nipple demonstrates a heterogeneous ?? area with a hypoechoic center and height prior to isoechoic periphery ?? measuring approximately 8 x 20 18 for millimeters the hypoechoic area ?? measures approximately 3 x 4 mm ?? There is an additional hypoechoic to isoechoic oval circumscribed solid ?? mass versus patch of tissue at 3:00 7 cm from nipple measuring 9 x 4 ?? mm. Findings could represent fat necrosis/hematoma. ? Results are discussed with the patient at time of visit. ? US/US breast RT limited mamm only ?? IMPRESSION: ?? Heterogeneous area at 3:00 7 cm from the nipple in the area the ?? patient's palpable lump. Recommend 3 month follow-up ultrasound for ?? further evaluation of stability. Biopsy was offered to the patient ?? however patient prefers follow-up at this time over biopsy. ? ASSESSMENT: ? BI-RADS 3: Probably Benign ? RECOMMENDATION: ?? Diagnostic ultrasound in 6 months. ? This patient's information was entered into a reminder system with a ?? target due date for their next mammogram. ? Electronically signed by: ??Yarely Townsend DO ??09/20/2024 03:25 PM EST ?? RP ? Dictated By: ?Yarely Townsend DO ? Signed By: ?<Electronically signed by Yarely Townsend, in OV> ? 09/20/24 1525 ? DD/ 1422 ? TD/TT: 09/20/24 1445 ? Medical Transcription: ? Procedure Note Yazan, Image - 09/20/2024 [place] [facility] [address] [place] [address] Ultrasound Report Signed Patient: Desmond Bui#: [id number] : 2000Acct:[id number] Age/Sex: M Date: 09/20/24 Loc: HO.MAMMO Attending Dr: Madison Najera MD Ordering Physician: Madison Ray MD Date of Service: 09/20/24 Procedure(s): US breast RT limited mamm only Accession Number(s): [id number] cc: Madison Ray MD EXAMINATION: US DIAGNOSTIC ULTRASOUND BREAST, RIGHT CLINICAL INFORMATION: 23-year-old female with right breast palpable lump for one month. No family history of breast cancer. No history of trauma or injury.. COMPARISON: Comparison is made with relevant prior imaging. TECHNIQUE: Ultrasound of the breast is performed with real-time butler scale imaging and color Doppler. FINDINGS: Targeted color Doppler ultrasound scanning in the area the patient's palpable lump at 3:00 7 cm from nipple demonstrates a heterogeneous area with a hypoechoic center and height prior to isoechoic periphery measuring approximately 8 x 20 18 for millimeters the hypoechoic area measures approximately 3 x 4 mm There is an additional hypoechoic to isoechoic oval circumscribed solid mass versus patch of tissue at 3:00 7 cm from nipple measuring 9 x 4 mm. Findings could represent fat necrosis/hematoma. Results are discussed with the patient at time of visit. US/US breast RT limited mamm only IMPRESSION: Heterogeneous area at 3:00 7 cm from the nipple in the area the patient's palpable lump. Recommend 3 month follow-up ultrasound for further evaluation of stability. Biopsy was offered to the patient however patient prefers follow-up at this time over biopsy. ASSESSMENT: BI-RADS 3: Probably Benign RECOMMENDATION: Diagnostic ultrasound in 6 months. This patient's information was entered into a reminder system with a target due date for their next mammogram. Electronically signed by: Yarely Townsend DO 09/20/2024 03:25 PM EST Dictated By: Yarely Townsend DO Signed By: <Electronically signed by Yarely Townsend DO in OV> 09/20/24 1525 DD/ 1422 TD/TT: 09/20/24 1445 Medical Transcription: us Madison Najera MD IMG US PROCEDURES Fin al Result * (ABNORMAL) Lipid Panel, Standard (07/12/2024 11:22 AM EST) Triglycerides 160(H) <150 mg/dL [facility] Comment:Desirable Triglyceri de: less than 150 mg/dLBorderline High Triglyceride 150-199 mg/dLHigh Triglyceride: 200-499 mg/dLVery High Triglyceride: greater than or equal to 5OO mg/dL Cholesterol 160 <200 mg/dL [facility] Comment:Desirable Cholestero l: less than 200 mg/dLBorderline High Cholesterol: 200-239 mg/dLHigh Cholesterol: greater than 239 mg/dL LDL Cholesterol Calculated 95 <100 mg/dL [facility] Comment:Desirable LDL: less than 100 mg/dLNear Optimal/Above Optimal LDL: 110- 129 mg/dLBorderline High LDL: 130-159 mg/dLHigh LDL: 160-189 mg/dLVery High LDL: greater than or equal to 190 mg/dL HDL Cholesterol 33(L) >40 mg/dL [facility] Comment:Desirable HDL: great er than 40 mg/dL Note: This HDL assay may give artificially low results in patients with liver disease. Blood Venous blood specimen / Unknown 07/12/2024 11:22 AM EST 07/12/2024 1:07 PM EST us Madison Najera MD LAB BLOOD ORDERABLES Final Result Performing Organization Address [facility]/ZIP Co de Phone Number [facility] [address] [place] [phone] * POCT A1C (05/23/2024 1:51 PM EDT) Pathologist [facility] Hemoglobin A1C 5.9 4.0 - 6.0 % QC Media Lot # [id number] Lot# Expiration Date 4765 Blood 05/23/2024 1:51 PM EDT Lynne Caraballo CNM POINT OF CARE TEST ENTER/ EDIT ORDERABLES Final Result * Hepatitis C Antibody with Reflex to HCV, RNA, Quantitative, Real-Time PCR (09/23/2023 12:01 PM EST) Pathologist [facility] Hepatitis C Antibody Nonreactive Nonreactive [facility] Comment:Antibodies to HCV no t detected; does not exclude early acuteHCV infection. 09/23/2023 12:0 1 PM EST 09/23/2023 12:01 PM EST Generic External Data Provider LAB BLOOD ORDERAB LES Final Result Performing Organization Address [facility]/ZIP Co de Phone Number [facility] [address] [place] [phone] * HIV-1/2 Antigen and Antibodies, Fourth Generation, with Reflexes (09/23/2023 12:01 PM EST) HIV AB/AG Nonreactive Nonreactive [facility] Comment:HIV-1 p24 Ag and/or HIV-1/HIV-2 Ab not detected.A test result that is nonreactive does not exclude thepossibility of exposure to or infection with HIV-1 and/orHIV-2. Nonreactive results in this assay for individualswith prior exposure to HIV-1 and/or HIV-2 may be due toantigen and antibody levels that are below the limit ofdetection of this assay.The NeoCodex HIV Ag/Ab Combo assay result andsupplemental assay results should be interpreted inconjunction with the patient's clinical presentation,history and other laboratory results. If the results areinconsistent with clinical evidence, additional testing issuggested to confirm the result. 09/23/2023 12:0 1 PM EST 09/23/2023 12:01 PM EST us Generic External Data Provider LAB BLOOD ORDERAB LES Final Result [facility] [address] [place] [phone] * Pap Smear (09/23/2023 11:39 AM EST) 09/23/2023 11:3 9 AM EST 09/25/2023 8:30 AM EST Narrative [facility] - 10/07/2023 3:24 PM EST ----- ------- Name: Mery Bui ?Age/Sex: 22/F ? : 2000 Unit#: [id number] ?? Attend Dr: Grace Eldridge CNM ?Re09/23/23 ?Status: DEP REF ? Location: HO.LNP ?Disch: ? ----- ------- SPEC : [id number] ? RECD: 09/25/23 ? STATUS: ??SOUT ? REQ NUM: [id number] ? JOSÉ MIGUEL: 09/23/23-1138 ? SUBM DR: Grace Eldridge CNM ? ENTERED: ??09/25/23-111 ?SP TYPE: Pap Smr ?OTHR DR: Madison Ray MD ? ORDERED: ??Pap Smear ? Interpretation ?? Satisfactory for evaluation. ?? Negative for intraepithelial lesion or malignancy. ?Clinical Information LMP: 09/16/23 Previous PAP test: Unknown date, WNL ? Material Received ?? ThinPrep-Cervical Copies To: ?? Madison Ray MD ?? [address] [facility] ?? [place] [id number] ?? [phone] ?? Grace Eldridge CNM ?? [address] [place] [facility] ?? [place] ?? [phone] ----- ------- Signed (signature on file) MERY Jonas (ASCP) 10/07/23 1524 ? ----- ------- ? END OF REPORT ? us Generic External Data Provider LAB CYTOLOGY JAMILAH FERNANDES Final Result [facility] [address] [place] [phone] from Last 3 Months or Most Recently Relevant to Health Maintenance Insurance [facility] C3 Care Teams Chief Enterprise Architect Relationship Specialty Start Date End Date Madison Ray MD [address] [place] [phone] PCP - General Family Medicine 04/28/18
[2025-01-01 12:08] VITALS: BP 136/80; PULSE 75; RESP 18; TEMP 37.1; O2SAT 96
[2025-01-01 14:12] LABS: Bacterial Vaginosis PCR NEGATIVE (Negative); Candida Group PCR NOT DETECTED (Not Detect); Candida glab krusei PCR NOT DETECTED (Not Detect); Trichomonas vaginalis PCR NOT DETECTED (Not Detect)
[2025-01-01 16:12] LABS: CT PCR NOT DETECTED (Not Detect.); NG PCR NOT DETECTED (Not Detect.)
== END 2025-01-01 12:09 | disposition home or self-care (01) ==
PROVIDERS: Registered Nurse Emergency; Emergency Provider Emergency Medicine; PCP Internal Medicine
DX: N93.8 Other specified abnormal uterine and vaginal bleeding (principal); R10.30 Lower abdominal pain, unspecified
CPT/HCPCS: 36415; 80053; 81001; 81025; 81515; 85025; 87086; 87147; 87491; 87591; 99283; 99284

== ENCOUNTER 2025-03-15 13:03 | Outpatient (REF) | payer MEDICAID, SELFPAY ==
--- NOTE | ~2025-03-15 | US_ITS ---
CLINICAL HISTORY: 24 y.o F with AUB US pelvis transabdominal and transvaginal with Doppler Comparison: None provided Findings: Transabdominal scanning performed for overall anatomy. Transvaginal scanning performed for additional detail. Uterus is 7.8 cm length. Normal myometrium. Endometrium 9.3 mm thickness. Right ovary 3.1 x 1.7 x 2.5 cm. Left ovary 3.9 x 1.6 x 1.2 cm. 1.6 cm follicle. Normal color Doppler with arterial/venous spectral tracing of both ovaries. No free fluid. IMPRESSION: Unremarkable pelvic ultrasound with no evidence of ovarian torsion. This document has been electronically signed by: Sangeetha Ovalles MD on 03/15/2025 15:55:47
--- OUTSIDE RECORDS SUMMARY | 2025-03-15 13:38 | XMS_ITS | Clinical Summary ---
Author Organization [employer] Address [address] [place] [address] 7 [place] [address] Care Team Providers Care Mirror Silverer Name Role Phone Madison Ray MD Primary [...] ONCE DAILY IN THE MORNING 48 g 08/14/20 23 Active pramoxine-hydrocor tisone, perianal, (Analpram HC) [...] infections, I will do internal referral to [facility] Chest pain 08/01/2023 Assessment & Plan (08/01/2023 [...] BV and refer her back again to [facility] Assessment & Plan (11/11/2022 2:54 PM EDT): Likely recurrent BV BV panel ordered today I will treat empirically for recurrent BV and also I will treat for yeast infection Obesity 11/14/2016 Encounters Date Type Department Care Team Description 02/14/2025 Telephone [facility] [address] [place] [phone] Madison Ray MD chart prep 02/09/2025 Patient Outreach [facility] [address] [place] [phone] Madison Ray MD Pre-visit Planning (LVM ) 01/04/2025 11:00 AM EDT Office Visit [address] [phone] [place], [place], [employer] Abnormal uterine bleeding (Primary Dx) 01/04/2025 Travel 01/02/[address] [phone] Madison Ray MD ER Follow-up; Nurse Triage 01/01/2025 Orders Only GENERIC EXTERNAL DATA DEPARTMENT Provider, Generic External Data from Last 3 Months Immunizations Immunization Administration [...] is your housing situation today? I have laverne garza 06/30/[address] you [...] Sign Reading Time Taken Comments Blood Pressure 130/77 01/04/2025 10:58 AM EDT Pulse 80 01/04/2025 10:58 AM EDT Temperature 36.6 C (97.8 F) 01/04/2025 10:58 AM EDT Respiratory Rate 20 01/04/2025 10:58 AM EDT Oxygen Saturation 97% 08/05/2024 11:33 AM EST Inhaled Oxygen Concentration - - Weight 150 kg (331 lb) 01/04/2025 10:58 AM EDT Height 175.3 cm (5' 9 ) 01/04/2025 10:58 AM EDT Body Mass Index 48.88 01/04/2025 10:58 AM EDT Plan of Treatment Upcoming Encounters Date Type Department Care Team (Late st Contact Info) Description 05/01/2025 11:15 AM EDT Office Visit [facility] [address] [place], [place] [phone] Madison Ray MD [address] [place] [address] Health Maintenance Due Date Last Done Comments Disability Screening 2000 COVID-19 Vaccine ( season) 2024 05/30/2021, 02/04/2021 Diagnostic Breast Imaging 12/18/2024 09/20/2024 DTaP/Tdap/Td Vaccines (7 - Td or Tdap) 01/04/2025 01/04/2015, 02/27/2005, 07/22/2001, Additional history exists Depression Screening 04/07/2025 04/07/2024, 04/07/20 24 Influenza Vaccine (#1) 2025 , 09/10/2023, 07/30/2020, Additional history exists Diabetes: Hemoglobin A1C 05/23/2025 024, 09/10/2023, 03/13/2021 Family Planning (PISQ) 05/23/2025 05/23/2024 SDOH Screening 06/30/2025 06/30/2024 Alcohol/Substance Use Screening 07/11/2025 07/11/2024 Tobacco Screening 01/04/2026 01/04/2025 Mammogram 09/20/2026 09/20/2024 Pap Smear 09/23/2026 09/23/2023, [...] Years) and At-Risk Patients (6 to 49) Years Aged Out 02/19/2001, 07/17/2000, 05/17/2000, Additional history exists No longer eligible based on patient's age to complete this topic IPV Vaccines Completed 02/27/2005, 01/2001, 05/17/2000, Additional history exists HPV Vaccines Completed 12/04/2015, 12/16, 08/27/2012 Hepatitis A Vaccines Completed 12/04/2015, 01/05/20 15 Meningococcal Vaccine Completed 10/07/2017, 015 HIV Screening Completed 09/23/2023, 03/03/2022 Hepatitis C Screening Completed 09/23/2023, 022 Meningococcal B Vaccine Aged Out No l onger eligible based on patient's age to complete this topic RSV under 20 months Aged Out No longe r eligible based on patient's age to complete this topic Rotavirus Vaccines Aged Out No longer eligible based on patient's age to complete this topic Procedures Procedure Name Priority Date/Time Associated Diagnosis Comments BACTERIAL VAGINOSIS PANEL Routine 01/01/2025 11:43 AM EDT COMPREHENSIVE METABOLIC PANEL Routine 01/01/2025 10:45 AM EDT CBC WITH AUTO DIFFERENTIAL Routine 01/01/2025 10:45 AM EDT URINALYSIS, COMPLETE, WITH REFLEX TO CULTURE Routine 01/01/2025 9:50 AM EDT HCG, QL, URINE Routine 01/01/2025 9:50 AM EDT CHLAMYDIA/N. GONORRHOEAE RNA, TMA, UROGENITAL Routine 01/01/2025 9:50 AM EDT CULTURE, URINE, ROUTINE Routine 01/01/2025 12:00 AM EDT BI US BREAST LIMITED RIGHT [...] Recently Relevant to Health Maintenance Results * Bacterial Vaginosis (01/01/2025 11:43 AM EDT) TRICHOMONAS VAGINALIS DETECTION BY PCR NOT DETECTED Not Detect [facility] BACTERIAL VAGINOSIS DETECTION BY PCR NEGATIVE Negative [facility] Comment:The BV organism targ ets of the Xpert Xpress MVP test can becommensal in women; Xpert Xpress MVP positive results forbacterial vaginosis should be considered in conjunction withother clinical and patient information to determine thedisease status. Organisms that are not detected by the XpertXpress MVP test have also been reported to be associatedwith BV and aerobic vaginitis.The Xpert Xpress MVP test performance has not been evaluatedin patients under the age of 14. CLAIRE GROUP DETECTION BY PCR NOT DETECTED Not Detect [facility] Claire glab krusei PCR NOT DETECTED Not Detect [facility] 01/01/2025 11:4 3 AM EDT 01/01/2025 11:45 AM EDT us Generic External Data Provider LAB MICROBIOLOGY - GENERAL ORDERABLES Final Result [facility] [address] [place] [phone] * (ABNORMAL) CBC auto differential (01/01/2025 10:45 AM EDT) White Blood Count 6.7 4.8 - 10.8 X10*3/uL [facility] Red Blood Count 4.38 4.20 - 5.50 X10*6/uL [facility] Hemoglobin 12.6 12.0 - 16.0 g/dl [facility] Hematocrit 35.9(L) 37.0 - 47.0 % [facility] Mean Corpuscular Volume 82.0 80.0 - 98.0 fL [facility] Mean Corpuscular Hemoglobin 28.8 27.0 - 33.0 pg [facility] Mean Corpuscular HGB Conc 35.1(H) 31.0 - 35.0 g/dl [facility] Red Cell Distribution Width 13.6 11.0 - 16.0 % [facility] Platelet Count 281 160 - 400 X10*3/uL [facility] Mean Platelet Volume 10.2 9.4 - 12.3 fL [facility] Neutrophils Percent Auto 63.3 45 - 73 % [facility] Imm Gran Pct Auto 0.6(H) 0.0 - 0.4 % [facility] Lymphocytes Percent Auto 24.6 20 - 40 % [facility] Monocytes Percent Auto 8.2 2 - 11 % [facility] Eosinophils Percent Auto 3.0 0 - 4 % [facility] Basophils Percent Auto 0.3 0 - 2 % [facility] NRBC Pct Auto 0.0 0.0 - 0.2 /100WBC [facility] Neutrophils Absolute Auto 4.2 2.0 - 8.3 x10*3/uL [facility] Imm Gran Abs Auto 0.04(H) 0.00 - 0.03 X10*3/uL [facility] Lymphocytes Absolute Auto 1.6 1.2 - 4.9 X10*3/uL [facility] Monocytes Absolute Auto 0.6 0.1 - 1.2 X10*3/uL [facility] Eosinophils Absolute Auto 0.2 0.0 - 0.4 X10*3/uL [facility] Basophils Absolute Auto 0.0 0.0 - 0.2 X10*3/uL [facility] NRBC Abs Auto 0.000 0.0 - 0.012 X10*3/uL [facility] 01/01/2025 10:4 5 AM EDT 01/01/2025 10:47 AM EDT us Generic External Data Provider LAB BLOOD ORDERAB LES Final Result [facility] [address] [place] [phone] * (ABNORMAL) Comprehensive Metabolic Panel (01/01/2025 10:45 AM EDT) Sodium 138 135 - 145 mmol/L [facility] Potassium 3.9 3.3 - 5.1 mmol/L [facility] Chloride 109(H) 96 - 108 mmol/L [facility] Carbon Dioxide 22 22 - 29 mmol/L [facility] Anion Gap 11(L) 12 - 20 [facility] Urea Nitrogen (BUN) 10 9 - 16 mg/dL [facility] Creatinine, Serum 0.80 0.5 - 1.4 mg/dL [facility] Creatinine Clr Calc Pharmacy 169.2 [facility] Comment:Provided height and weight: 175.26 cm,149.9 kg.eGFR (calculated from the MDRD study equation) and eCrCl(calculated from the Cockcroft-Gault equation) are based ondifferent parameters and may not yield comparable results.If eCrCl result is absurd, please check patient'sheight/weight. Estimated Glomerular Filt Rate >60 [facility] Comment:Chronic Kidney Disea se: Estimated GFR < 60 mL/min/1.23m3Syfjfc Kidney Disease: Estimated GFR < 15 mL/min/1.73m2 Glucose 101 60 - 115 mg/dL [facility] Calcium 8.7 8.4 - 10.2 mg/dL [facility] Bilirubin, Total 0.3 0.0 - 1.0 mg/dL [facility] Aspartate Amino Transferase 31 5 - 31 U/L [facility] Alanine Aminotransferase 25 0 - 31 U/L [facility] Total Protein 7.5 6.5 - 8.0 g/dL [facility] Albumin Level 3.9 3.5 - 5.0 g/dL [facility] Alkaline Phosphatase 67 39 - 117 U/L [facility] 01/01/2025 10:4 5 AM EDT 01/01/2025 10:47 AM EDT us Generic External Data Provider LAB BLOOD ORDERAB LES Final Result Performing Organization Address City/[facility]/ZIP Co de Phone Number [facility] [address] [place] [address] [phone] * (ABNORMAL) Urinalysis, Complete, with Reflex to Culture (01/01/2025 9:50 AM EDT) Color Urine Red(A) [facility] Appearance Urine Cloudy [facility] PH 5.5 5.0 - 9.0 [facility] Glucose Urine UA Negative Negative mg/dL [facility] Urine Blood Large (3+)(A) Negative [facility] Specific Kingsley - Urine 1.015 1.005 - 1.025 [facility] Urine Protein 30 (1+)(A) Neg-Trace mg/dL [facility] Urine Ketones Negative Negative mg/dL [facility] Nitrite Urine Negative Negative [facility] Leukocyte Esterase Urine Small (1+)(A) Negative [facility] RBC Urine >20(A) 0 - 2 /HPF [facility] Urine WBC 6-10(A) 0 - 5 /HPF [facility] Urine Squamous Epithelial Cell 3-5 0 - 2 /HPF [facility] Urine Bacteria Trace None Seen [facility] Hyaline Casts, Urine 0-2 0 - 2 /LPF [facility] 01/01/2025 9:50 AM EDT 01/01/2025 9:55 AM EDT Narrative [facility] - 01/01/2025 10:08 AM EDT [id number], Clean Catch us Generic External Data Provider LAB URINE ORDERAB LES Final Result Performing Organization Address [facility]/ZIP Co de Phone Number [facility] [address] [place] [phone] * Chlamydia/N. Gonorrhoeae RNA, TMA, Urogenitial (01/01/2025 9:50 AM EDT) CT PCR NOT DETECTED Not Detect. [facility] Comment:A not detected test result does not exclude the possibilityof infection because test results can be affected byimproper specimen collection, concurrent antibiotic therapy,or the number of organisms in the specimen which may bebelow the sensitivity of the test. As with many diagnostictests, results from the Xpert CT/NG assay should beinterpreted in conjunction with other laboratory andclinical data available to the clinician.Xpert CT/NG performance has not been evaluated in patientsless than 14 years of age. The assay should not be used forthe evaluationof suspected sexual abuse or for other medico-legalindications. Additional testing is recommended in anycircumstance when false positive or false negative resultscould lead to adverse medical, social or psychologicalconsequences. NG PCR NOT DETECTED Not Detect. [facility] Comment:A not detected test result does not exclude the possibilityof infection because test results can be affected byimproper specimen collection, concurrent antibiotic therapy,or the number of organisms in the specimen which may bebelow the sensitivity of the test. As with many diagnostictests, results from the Xpert CT/NG assay should beinterpreted in conjunction with other laboratory andclinical data available to the clinician.Xpert CT/NG performance has not been evaluated in patientsless than 14 years of age. The assay should not be used forthe evaluationof suspected sexual abuse or for other medico-legalindications. Additional testing is recommended in anycircumstance when false positive or false negative resultscould lead to adverse medical, social or psychologicalconsequences. 01/01/2025 9:50 AM EDT 01/01/2025 9:55 AM EDT Narrative [facility] - 01/01/2025 4:12 PM EDT Urine us Generic External Data Provider LAB MICROBIOLOGY - GENERAL ORDERABLES Final Result [facility] [address] [place] [phone] * HCG, Qualitative, Urine (01/01/2025 9:50 AM EDT) Urine NEGATIVE NEGATIVE [facility] Comment:This test was develo ped to detect early . Falsenegative results may occur after the 5th - 7th week ofpregnancy when using this test method. If clinicallyindicated, consider a serum hCG. 01/01/2025 9:50 AM EDT 01/01/2025 9:55 AM EDT Generic External Data Provider LAB URINE ORDERAB LES Final Result Performing Organization Address [facility] [[email or web address]] Co de Phone Number [facility] [address] [place] [phone] * Culture, Urine, Routine (01/01/2025 12:00 AM EDT) Urine Urine specimen obtained by clean catch procedure / Unknown 01/01/2025 01/01/2025 Comment:UACC Narrative [facility] - 01/02/2025 8:56 AM EDT Urine Culture Report Result Urine Culture > 100,000 cfu/ml Urine Culture Mixed bacterial narciso characteristic of Urine Culture urogenital contamination. Strep agalactiae (Grp B) Quant 50,000 to 100,000 cfu/mL Susc N/A Susceptibility not routinely performed on this isolate. Specimen Source: Urine clean catch Generic External Data Provider LAB MICROBIOLOGY - GENERAL ORDERABLES Final Result Performing Organization Address [facility] [[email or web address]] Co de Phone Number [facility] [address] [place] [phone] * BI US Breast Limited Right (09/20/2024 2:22 PM EST) Anatomical Region Laterality Modality Breast Right Ultrasound 09/20/2024 2:22 PM EST Narrative 09/20/2024 3:28 PM EST [facility] [address] [place] [address] Ultrasound Report Signed Patient: Mery Bui MR#: [id number] : 2000 Acct:[id number] Age/Sex: 23 / F ADM Date: 09/20/24 Loc: HO.MAMMO Attending Dr: Madison Najera MD Ordering Physician: Madison Ray MD Date of Service: 09/20/24 Procedure(s): US breast RT limited mamm only Accession Number(s): [id number] cc: Madison Ray MD EXAMINATION: US DIAGNOSTIC [...] by: Yarely Townsend DO 09/20/2024 03:25 PM [facility] Dictated By: Yarely Townsend DO Signed By: <Electronically signed by Yarely Townsend DO in OV> 09/20/24 1525 DD/ 1422 TD/TT: 09/20/24 1445 Shop Estimator: Procedure Note Donotuseinterpreter, Image - 09/20/2024 [facility] [address] [place] [address] Ultrasound Report Signed Patient: Mery BuiMR#: [id number] : 2000Acct:[id number] Age/Sex: 23 / FADM Date: 09/20/24 Loc: HO.MAMMO Attending Dr: Madison Najera MD Ordering Physician: Madison Ray MD Date of Service: 09/20/24 Procedure(s): US breast RT limited mamm only Accession Number(s): [id number] cc: Madison Ray MD EXAMINATION: US DIAGNOSTIC [...] by: Yarely Townsend DO 09/20/2024 03:25 PM [facility] Dictated By: Yarely Townsend DO Signed By: <Electronically signed by Yarely Townsend DO in OV> 09/20/24 1525 DD/ 1422 TD/TT: 09/20/24 1445 Shop Estimator: Madison Najera MD IMG US PROCEDURES Fin al Result * (ABNORMAL) Lipid Panel, Standard (07/12/2024 11:22 AM EST) Triglycerides 160(H) <150 mg/dL [facility] Comment:Desirable Triglyceri de: less than 150 mg/dLBorderline High Triglyceride 150-199 mg/dLHigh Triglyceride: 200-499 mg/dLVery High Triglyceride: greater than or equal to 5OO mg/dL Cholesterol 160 <200 mg/dL [facility] Comment:Desirable Cholestero l: less than 200 mg/dLBorderline High Cholesterol: 200-239 mg/dLHigh Cholesterol: greater than 239 mg/dL LDL Cholesterol Calculated 95 <100 mg/dL [facility] Comment:Desirable LDL: less than 100 mg/dLNear Optimal/Above Optimal LDL: 110- 129 mg/dLBorderline High LDL: 130-159 mg/dLHigh LDL: 160-189 mg/dLVery High LDL: greater than or equal to 190 mg/dL HDL Cholesterol 33(L) >40 mg/dL [facility] Comment:Desirable HDL: great er than 40 mg/dL Note: This HDL assay may give artificially low results in patients with liver disease. Blood Venous blood specimen / Unknown 07/12/2024 11:22 AM EST 07/12/2024 1:07 PM EST us Madison Najera MD LAB BLOOD ORDERABLES Final Result [facility] [address] [place] [address] [phone] * POCT A1C (05/23/2024 1:51 PM EDT) Hemoglobin A1C 5.9 4.0 - 6.0 % QC Media Lot # [id number] Lot# Expiration Date [id number] Blood 05/23/2024 1:51 PM EDT Lynne Melissayvonne CN POINT OF CARE TEST ENTER/ EDIT ORDERABLES Final Result * Hepatitis C Antibody with Reflex to HCV, RNA, Quantitative, Real-Time PCR (09/23/2023 12:01 PM EST) Hepatitis C Antibody Nonreactive Nonreactive [facility] Comment:Antibodies to HCV no t detected; does not exclude early acuteHCV infection. 09/23/2023 12:0 1 PM EST 09/23/2023 12:01 PM EST Generic External Data Provider LAB BLOOD ORDERAB LES Final Result Performing Organization Address [facility] [[email or web address]] Co de Phone Number [facility] [address] [place] [phone] * HIV-1/2 Antigen and Antibodies, Fourth Generation, with Reflexes (09/23/2023 12:01 PM EST) HIV AB/AG Nonreactive Nonreactive [facility] Comment:HIV-1 p24 Ag and/or HIV-1/HIV-2 Ab not detected.A test result that is nonreactive does not exclude thepossibility of exposure to or infection with HIV-1 and/orHIV-2. Nonreactive results in this assay for individualswith prior exposure to HIV-1 and/or HIV-2 may be due toantigen and antibody levels that are below the limit ofdetection of this assay.The MoverniIndigio HIV Ag/Ab Combo assay result andsupplemental assay results should be interpreted inconjunction with the patient's clinical presentation,history and other laboratory results. If the results areinconsistent with clinical evidence, additional testing issuggested to confirm the result. 09/23/2023 12:0 1 PM EST 09/23/2023 12:01 PM EST us Generic External Data Provider LAB BLOOD ORDERAB LES Final Result Performing Organization Address [facility]/ZIP Co de Phone Number [facility] [address] [place] [phone] * Pap Smear (09/23/2023 11:39 AM EST) 09/23/2023 11:3 9 AM EST 09/25/2023 8:30 AM EST [facility] - 10/07/2023 3:24 PM EST ----- ------- Name: Mery Bui Age/Sex: 22/F : 2000 Unit#: [id number] Attend Dr: Grace Eldridge CNM Re09/23/23 Status: DEP REF Location: HO.LNP Disch: ----- ------- SPEC : [id number] RECD: 09/25/23 STATUS: DAVIDE ROMANO NUM: [id number] JOSÉ MIGUEL: 09/23/23-[address] [facility] [address]: Grace Eldridge CNM ENTERED: 09/25/23-1112 SP TYPE: Pap Smr OTHR : Madison Ray MD ORDERED: Pap Smear Interpretation Satisfactory for evaluation. Negative for intraepithelial lesion or malignancy. Clinical Information LMP: 09/16/23 Previous PAP test: Unknown date, WNL Material Received ThinPrep-Cervical Copies To: Madison Ray MD [address] [place], [place] [phone] Grace Eldridge CNM [address] [place] [address] Dr. [address] [place] [address] ----- ------- Signed (signature on file) MERY Jonas ([facility]) 10/07/23 1524 ----- ------- END OF REPORT us Generic External Data Provider LAB CYTOLOGY JAMILAH FERNANDES Final Result [facility] [address] [place] [address] [phone] from Last 3 Months or Most Recently Relevant to Health Maintenance [facility] Care Teams Mirror Silverer Relationship Specialty Start Date End Date Madison Ray MD [address] [place] [phone] PCP - General Family Medicine 04/28/18
== END 2025-03-15 13:04 | disposition home or self-care (01) ==
LOC: HO.US 13:03
PROVIDERS: PCP Internal Medicine; Visit Provider Registered Nurse
DX: N93.9 Abnormal uterine and vaginal bleeding, unspecified (principal)
CPT/HCPCS: 76830; 76856

== ENCOUNTER → 2025-03-15 13:04 | Outpatient (BNV) | payer MEDICAID, SELFPAY | PROVIDERS: PCP Internal Medicine; Visit Provider Nuclear Medicine | DX: N93.9 Abnormal uterine and vaginal bleeding, unspecified (principal) | CPT/HCPCS: 76830; 76856 ==

== ENCOUNTER 2025-03-29 11:30 | Outpatient (REF) | payer MEDICAID, SELFPAY ==
--- NOTE | ~2025-03-29 | US_ITS ---
EXAMINATION: US DIAGNOSTIC ULTRASOUND BREAST, RIGHT CLINICAL INFORMATION: 6 month follow-up for right breast mass previously seen at 3:00 7 cm from the nipple. Patient denies prior trauma COMPARISON: Comparison is made with relevant prior imaging. TECHNIQUE: Ultrasound of the breast is performed with real-time butler scale imaging and color Doppler. FINDINGS: Targeted color Doppler ultrasound scanning at 3:00 7 cm from nipple demonstrates normal fibronodular breast tissue. There is no sonographic abnormal finding. Targeted color Doppler ultrasound at 2:00 2 cm from nipple demonstrates a heterogeneous mixed hypoechoic and hyperechoic/isoechoic oval parallel solid mass with internal vascular flow at 2:00 2 cm from the nipple measuring 16 x 21 x 8 mm. Results are discussed with the patient at time of visit. US/US breast RT limited mamm only IMPRESSION: Heterogeneous cystic and solid mass at 2:00 2 cm from the nipple. Recommend ultrasound-guided core needle biopsy at this time for confirmation. The findings and recommendations were discussed with the patient the procedure will be scheduled. ASSESSMENT: BI-RADS 4: Suspicious RECOMMENDATION: Biopsy at this time. Electronically signed by: Yarely Townsend DO 03/29/2025 12:54 PM EDT
--- OUTSIDE RECORDS SUMMARY | 2025-03-29 12:31 | XMS_ITS | Clinical Summary ---
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 Phone Madison Ray MD Primary [...] infections, I will do internal referral to [facility] Chest pain 08/01/2023 Assessment & Plan (08/01/2023 [...] BV and refer her back again to [facility] Assessment & Plan (11/11/2022 2:54 PM EDT): Likely recurrent BV BV panel ordered today I will treat empirically for recurrent BV and also I will treat for yeast infection Obesity 11/14/2016 Encounters Date Type Department Care Team Description 03/15/2025 Results Follow-Up [facility] [address] [place] [phone] Lulu Schmitt FNP US Pelvis Transvaginal 02/14/[address] [address] Madison Ray MD chart prep 02/09/2025 Patient Outreach [address] [address] Madison Ray MD Pre-visit Planning (LVM ) 01/04/2025 11:00 AM EDT Office Visit [address] [address] Lulu Schmitt FNP Abnormal uterine bleeding (Primary Dx) 01/04/2025 Travel 01/02/[address] [address] Madison Ray MD ER Follow-up; Nurse Triage [...] the past 12 months, has t he [employer], gas, oil or water company threatened to [...] Description 05/01/2025 11:15 AM EDT Office Visit [facility] [address] [place], [place] [phone] Madison Ray MD [address] [place] [address] Health Maintenance Due Date Last Done Comments [...] Procedure Name Priority Date/Time Associated Diagnosis Comments US PELVIS TRANSVAGINAL Routine 3:55 PM EDT Abnormal uterine bleeding BACTERIAL VAGINOSIS PANEL Routine 01/01/2025 11:43 AM [...] (BMI) of 45.0 to 49.9 in adult ([facility]) POCT GLYCATED HEMOGLOBIN, TOTAL Routine 05/23/2024 1:51 PM EDT Prediabetes HEPATITIS C AB W/REFL TO HCV RNA, QN, PCR Routine 09/23/2023 12:01 PM EST HIV 1/2 ANTIGEN/ANTIBODY, FOURTH GENERATION W/RFL Routine 09/23/2023 12:01 PM EST PAP SMEAR Routine 09/23/2023 11:39 AM EST from Last 3 Months or Most Recently Relevant to Health Maintenance Results * US Pelvis Transvaginal (03/15/2025 3:55 PM EDT) Anatomical Region Laterality Modality Pelvis Ultrasound 03/15/2025 3:55 PM EDT Narrative 03/15/2025 3:56 PM EDT [place] [address] Ultrasound Report Signed Patient: Mery Bui MR#: [id number] 279 : 2000 Acct:[id number] Age/Sex: 24 / F ADM Date: 03/15/25 Loc: HO. Attending Dr: Lulu POLANCO Ordering Physician: Lulu Schmitt Date of Service: 03/15/25 Procedure(s): US pelvic and transvaginal Accession Number(s): [id number] cc: Madison Ray MD; Lulu Schmitt CLINICAL HISTORY: 24 y.o F with AUB US pelvis transabdominal and transvaginal with Doppler Comparison: None provided Findings: Transabdominal scanning performed for overall anatomy. Transvaginal scanning performed for additional detail. Uterus is 7.8 cm length. Normal myometrium. Endometrium 9.3 mm thickness. Right ovary 3.1 x 1.7 x 2.5 cm. Left ovary 3.9 x 1.6 x 1.2 cm. 1.6 cm follicle. Normal color Doppler with arterial/venous spectral tracing of both ovaries. No free fluid. IMPRESSION: Unremarkable pelvic ultrasound with no evidence of ovarian torsion. This document has been electronically signed by: Sangeetha Ovalles MD on 03/15/2025 15:55:47 Dictated By: Sangeetha Ovalles MD Signed By: <Electronically signed by Sangeetha Ovalles MD in OV> 03/15/251555 DD/ 54 TD/TT: 03/15/251554 Formulator: Procedure Note Donotuseinterpreter, Image - 03/15/2025 [place] [address] Ultrasound Report Signed Patient: Mery Bui#: [id number] 279 : 2000Acct:[id number] Age/Sex: 24 FADM Date: 03/15/25 Loc: .US Attending Dr: Lulu Schmitt [facility] Ordering Physician: Lulu Schmitt [facility] Date of Service: 03/15/25 Procedure(s): US pelvic and transvaginal Accession Number(s): [id number] cc: Madison Ray MD; [facility] CLINICAL HISTORY: 24 y.o F with AUB US pelvis transabdominal and transvaginal with Doppler Comparison: None provided Findings: Transabdominal scanning performed for overall anatomy. Transvaginal scanning performed for additional detail. Uterus is 7.8 cm length. Normal myometrium. Endometrium 9.3 mm thickness. Right ovary 3.1 x 1.7 x 2.5 cm. Left ovary 3.9 x 1.6 x 1.2 cm. 1.6 cm follicle. Normal color Doppler with arterial/venous spectral tracing of both ovaries. No free fluid. IMPRESSION: Unremarkable pelvic ultrasound with no evidence of ovarian torsion. This document has been electronically signed by: Sangeetha Ovalles MD on 03/15/2025 15:55:47 Dictated By: Sangeetha Ovalles MD Signed By: <Electronically signed by Sangeetha Ovalles MD in OV> 03/15/251555 DD/ 54 TD/TT: 03/15/251554 Formulator: [facility] IMG US PROCEDURES Final Resul t * Bacterial Vaginosis (01/01/2025 11:43 AM EDT) TRICHOMONAS VAGINALIS DETECTION BY PCR NOT DETECTED Not Detect [facility] BACTERIAL VAGINOSIS DETECTION BY PCR NEGATIVE Negative [facility] Comment:The BV organism targ ets [...] DETECTION BY PCR NOT DETECTED Not Detect [facility] Claire glab krusei PCR NOT DETECTED Not Detect [facility] 01/01/2025 11:4 3 AM EDT 01/01/2025 11:45 AM EDT Generic External Data Provider LAB MICROBIOLOGY - GENERAL ORDERABLES Final Result [facility] [address] [place] [phone] * (ABNORMAL) CBC auto differential (01/01/2025 10:45 AM EDT) Pathologist [facility] White Blood Count 6.7 4.8 - 10.8 X10*3/uL [facility] Red Blood Count 4.38 4.20 - 5.50 X10*6/uL [facility] Hemoglobin 12.6 12.0 - 16.0 g/dl [facility] Hematocrit 35.9(L) 37.0 - 47.0 % [facility] Mean Corpuscular Volume 82.0 80.0 - 98.0 fL [facility] Mean Corpuscular Hemoglobin 28.8 27.0 - 33.0 pg [facility] Mean Corpuscular HGB Conc 35.1(H) 31.0 - 35.0 g/dl [facility] Red Cell Distribution Width 13.6 11.0 - 16.0 % [facility] Platelet Count 281 160 - 400 X10*3/uL [facility] Mean Platelet Volume 10.2 9.4 - 12.3 fL [facility] Neutrophils Percent Auto 63.3 45 - 73 % [facility] Imm Gran Pct Auto 0.6(H) 0.0 - 0.4 % [facility] Lymphocytes Percent Auto 24.6 20 - 40 % [facility] Monocytes Percent Auto 8.2 2 - 11 % [facility] Eosinophils Percent Auto 3.0 0 - 4 % [facility] Basophils Percent Auto 0.3 0 - 2 % [facility] NRBC Pct Auto 0.0 0.0 - 0.2 /100WBC [facility] Neutrophils Absolute Auto 4.2 2.0 - 8.3 x10*3/uL [facility] Imm Gran Abs Auto 0.04(H) 0.00 - 0.03 X10*3/uL [facility] Lymphocytes Absolute Auto 1.6 1.2 - 4.9 X10*3/uL [facility] Monocytes Absolute Auto 0.6 0.1 - 1.2 X10*3/uL [facility] Eosinophils Absolute Auto 0.2 0.0 - 0.4 X10*3/uL [facility] Basophils Absolute Auto 0.0 0.0 - 0.2 X10*3/uL [facility] NRBC Abs Auto 0.000 0.0 - 0.012 X10*3/uL [facility] 01/01/2025 10:4 5 AM EDT 01/01/2025 10:47 AM EDT us Generic External Data Provider LAB BLOOD ORDERAB LES Final Result [facility] [address] [place] [phone] * (ABNORMAL) Comprehensive Metabolic Panel (01/01/2025 10:45 AM EDT) Sodium 138 135 - 145 mmol/L [facility] Potassium 3.9 3.3 - 5.1 mmol/L [facility] Chloride 109(H) 96 - 108 mmol/L [facility] Carbon Dioxide 22 22 - 29 mmol/L [facility] Anion Gap 11(L) 12 - 20 [facility] Urea Nitrogen (BUN) 10 9 - 16 mg/dL [facility] Creatinine, Serum 0.80 0.5 - 1.4 mg/dL [facility] Creatinine Clr Calc Pharmacy 169.2 [facility] Comment:Provided height and weight: 175.26 cm,149.9 kg.eGFR (calculated from the MDRD study equation) and eCrCl(calculated from the Cockcroft-Gault equation) are based ondifferent parameters and may not yield comparable results.If eCrCl result is absurd, please check patient'sheight/weight. Estimated Glomerular Filt Rate >60 [facility] Comment:Chronic Kidney Disea se: Estimated GFR < 60 mL/min/1.12c6Nvbkza Kidney Disease: Estimated GFR < 15 mL/min/1.73m2 Glucose 101 60 - 115 mg/dL [facility] Calcium 8.7 8.4 - 10.2 mg/dL [facility] Bilirubin, Total 0.3 0.0 - 1.0 mg/dL [facility] Aspartate Amino Transferase 31 5 - 31 U/L [facility] Alanine Aminotransferase 25 0 - 31 U/L [facility] Total Protein 7.5 6.5 - 8.0 g/dL [facility] Albumin Level 3.9 3.5 - 5.0 g/dL [facility] Alkaline Phosphatase 67 39 - 117 U/L [facility] 01/01/2025 10:4 5 AM EDT 01/01/2025 10:47 AM EDT us Generic External Data Provider LAB BLOOD ORDERAB LES Final Result [facility] [address] [place] [phone] * (ABNORMAL) Urinalysis, Complete, with Reflex to Culture (01/01/2025 9:50 AM EDT) Color Urine Red(A) [facility] Appearance Urine Cloudy [facility] PH 5.5 5.0 - 9.0 [facility] Glucose Urine UA Negative Negative mg/dL [facility] Urine Blood Large (3+)(A) Negative [facility] Specific Lula - Urine 1.015 1.005 - 1.025 [facility] Urine Protein 30 (1+)(A) Neg-Trace mg/dL [facility] Urine Ketones Negative Negative mg/dL [facility] Nitrite Urine Negative Negative [facility] Leukocyte Esterase Urine Small (1+)(A) Negative [facility] RBC Urine >20(A) 0 - 2 /HPF [facility] Urine WBC 6-10(A) 0 - 5 /HPF [facility] Urine Squamous Epithelial Cell 3-5 0 - 2 /HPF [facility] Urine Bacteria Trace None Seen [facility] Hyaline Casts, Urine 0-2 0 - 2 /LPF [facility] 01/01/2025 9:50 AM EDT 01/01/2025 9:55 AM EDT Narrative [facility] - 01/01/2025 10:08 AM EDT [id number], Clean Catch us Generic External Data Provider LAB URINE ORDERAB LES Final Result [facility] [address] [place] [phone] * Chlamydia/N. Gonorrhoeae RNA, TMA, Urogenitial (01/01/2025 9:50 AM EDT) CT PCR NOT DETECTED Not Detect. [facility] Comment:A not detected test result [...] psychologicalconsequences. NG PCR NOT DETECTED Not Detect. [facility] Comment:A not detected test result [...] AM EDT 01/01/2025 9:55 AM EDT Narrative [facility] - 01/01/2025 4:12 PM EDT Urine Generic External Data Provider LAB MICROBIOLOGY - GENERAL ORDERABLES Final Result [facility] [address] [place] [phone] * HCG, Qualitative, Urine (01/01/2025 9:50 AM EDT) Urine NEGATIVE NEGATIVE [facility] Comment:This test was develo ped to detect early . Falsenegative results may occur after the 5th - 7th week ofpregnancy when using this test method. If clinicallyindicated, consider a serum hCG. 01/01/2025 9:50 AM EDT 01/01/2025 9:55 AM EDT Generic External Data Provider LAB URINE ORDERAB LES Final Result Performing Organization Address [facility] Co de Phone Number [facility] [address] [place] [phone] * Culture, Urine, Routine (01/01/2025 12:00 AM EDT) Urine Urine specimen obtained by clean catch procedure / Unknown 01/01/2025 01/01/2025 Comment:UACC Narrative [facility] - 01/02/2025 8:56 AM EDT [...] GENERAL ORDERABLES Final Result Performing Organization Address [facility] Co de Phone Number [facility] [address] [place] [phone] * BI US Breast Limited Right (09/20/2024 2:22 PM EST) Anatomical Region Laterality Modality Breast Right Ultrasound 09/20/2024 2:22 PM EST Narrative 09/20/2024 3:28 PM EST [facility] [address] [place] [address] Ultrasound Report Signed Patient: Mery Bui MR#: [id number] 279 : 2000 Acct:[id number] Age/Sex: 23 / F ADM Date: 09/20/24 Loc: HO.MAMMO Attending Dr: Madison Najera MD Ordering Physician: Madison Ray MD Date of Service: 09/20/24 Procedure(s): US breast RT limited mamm only Accession Number(s): [id number] cc: Madison Ray MD EXAMINATION: US DIAGNOSTIC [...] by: Yarely Townsend DO 09/20/2024 03:25 PM [facility] Dictated By: Yarely Townsend DO Signed By: <Electronically signed by Yarely Townsend DO in OV> 09/20/24 1525 DD/ 1422 TD/TT: 09/20/24 1445 Formulator: Procedure Note Donotuseinterpreter, Image - 09/20/20[facility] [address] [place] [address] Ultrasound Report Signed Patient: Mery Bui#: [id number] 279 : 2000Acct:[id number] Age/Sex: 23 / FADM Date: 09/20/24 Loc: HO.MAMMO Attending Dr: Madison Najera MD Ordering Physician: Madison Ray MD Date of Service: 09/20/24 Procedure(s): US breast RT limited mamm only Accession Number(s): [id number] cc: Madison Ray MD EXAMINATION: US DIAGNOSTIC [...] 09/20/24 1525 DD/ 1422 TD/TT: 09/20/24 1445 Formulator: us Madison Najera MD IMG US PROCEDURES Fin al Result * (ABNORMAL) Lipid Panel, Standard (07/12/2024 11:22 AM EST) Triglycerides 160(H) <150 mg/dL [facility] Comment:Desirable Triglyceri de: less than 150 mg/dLBorderline High Triglyceride 150-199 mg/dLHigh Triglyceride: 200-499 mg/dLVery High Triglyceride: greater than or equal to 5OO mg/dL Cholesterol 160 <200 mg/dL [facility] Comment:Desirable Cholestero l: less than 200 mg/dLBorderline High Cholesterol: 200-239 mg/dLHigh Cholesterol: greater than 239 mg/dL LDL Cholesterol Calculated 95 <100 mg/dL [facility] Comment:Desirable LDL: less than 100 mg/dLNear Optimal/Above Optimal LDL: 110- 129 mg/dLBorderline High LDL: 130-159 mg/dLHigh LDL: 160-189 mg/dLVery High LDL: greater than or equal to 190 mg/dL HDL Cholesterol 33(L) >40 mg/dL [facility] Comment:Desirable HDL: great er than 40 mg/dL Note: This HDL assay may give artificially low results in patients with liver disease. Blood Venous blood specimen / Unknown 07/12/2024 11:22 AM EST 07/12/2024 1:07 PM EST us Madison Najera MD LAB BLOOD ORDERABLES Final Result [facility] [address] [place] [phone] * POCT A1C (05/23/2024 1:51 PM EDT) Hemoglobin A1C 5.9 4.0 - 6.0 % QC Media Lot # [id number] Lot# Expiration Date 1159 Blood 05/23/2024 1:51 PM EDT us Lynne Caraballo CNM POINT OF CARE TEST ENTER/ EDIT ORDERABLES Final Result * Hepatitis C Antibody with Reflex to HCV, RNA, Quantitative, Real-Time PCR (09/23/2023 12:01 PM EST) Hepatitis C Antibody Nonreactive Nonreactive [facility] Comment:Antibodies to HCV no t detected; does not exclude early acuteHCV infection. 09/23/2023 12:0 1 PM EST 09/23/2023 12:01 PM EST Generic External Data Provider LAB BLOOD ORDERAB LES Final Result Performing Organization Address City/[facility]/ZIP Co de Phone Number [facility] [address] [place] [phone] * HIV-1/2 Antigen and Antibodies, Fourth Generation, with Reflexes (09/23/2023 12:01 PM EST) HIV AB/AG Nonreactive Nonreactive [facility] Comment:HIV-1 p24 Ag and/or HIV-1/HIV-2 Ab not detected.A test result that is nonreactive does not exclude thepossibility of exposure to or infection with HIV-1 and/orHIV-2. Nonreactive results in this assay for individualswith prior exposure to HIV-1 and/or HIV-2 may be due toantigen and antibody levels that are below the limit ofdetection of this assay.The [employer] HIV Ag/Ab Combo assay result andsupplemental assay results should be interpreted inconjunction with the patient's clinical presentation,history and other laboratory results. If the results areinconsistent with clinical evidence, additional testing issuggested to confirm the result. 09/23/2023 12:0 1 PM EST 09/23/2023 12:01 PM EST us Generic External Data Provider LAB BLOOD ORDERAB LES Final Result Performing Organization Address City/[facility]/ZIP Co de Phone Number [facility] [address] [place] [phone] * Pap Smear (09/23/2023 11:39 AM EST) 09/23/2023 11:3 9 AM EST 09/25/2023 8:30 AM EST Narrative [facility] - 10/07/2023 3:24 PM EST ----- ------- Name: Mery Bui Age/Sex: 22/F : 2000 Unit#: [id number] Attend Dr: Grace Eldridge CNM Re09/23/23 Status: DEP REF Location: [facility] Disch: ----- ------- SPEC : [id number] RECD: 09/25/23 STATUS: DAVIDE VÁSQUEZGagandeep NUM: [id number] JOSÉ MIGUEL: 09/23/23-1139 [facility] DR: Grace Eldridge CNM ENTERED: 09/25/23-1112 SP TYPE: Pap Smr OTHR DR: Madison Ray MD ORDERED: Pap Smear Interpretation Satisfactory for evaluation. Negative for intraepithelial lesion or malignancy. Clinical Information LMP: 09/16/23 Previous PAP test: Unknown date, WNL Material Received ThinPrep-Cervical Copies To: Madison Ray MD [address] [place], [place] [phone] Grace Eldridge CNM [address] [place] [address] [address] ----- ------- Signed (signature on file) MERY Jonas ([facility]) 10/07/23 1524 ----- ------- END OF REPORT us Generic External Data Provider LAB CYTOLOGY JAMILAH FERNANDES Final Result [facility] [address] [place] [phone] from Last 3 Months or Most Recently Relevant to Health Maintenance Insurance [employer] 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
== END 2025-03-29 11:31 | disposition home or self-care (01) ==
LOC: HO.MAMMO 11:30
PROVIDERS: Visit Provider Internal Medicine
DX: N63.15 Unspecified lump in the right breast, overlapping quadrants (principal)
CPT/HCPCS: 76642

== ENCOUNTER → 2025-03-29 11:30 | Outpatient (BNV) | payer MEDICAID, SELFPAY | PROVIDERS: Visit Provider Internal Medicine | DX: N60.01 Solitary cyst of right breast (principal) | CPT/HCPCS: 76642 ==